=== PATIENT | female | born 1940 | race Asian ===

== ENCOUNTER 2016-12-13 22:40 | Inpatient (IN) | payer OTHER ==
--- NOTE | 2016-12-13 22:50 | PDOC ---
History of Present Illness - General Chief Complaint: Injury Stated Complaint: FALL History Source: Patient Exam Limitations: No Limitations - History of Present Illness Initial Comments: 12/13/16 22:49 76y F hx of paraplegia presenting with hip bruising. The pt state she has no sensation from the chest down, yesterday when she was transferring from wheelchair, she fell down off the wheel chair with her L leg folded under her. She did not feel any pain, there was no head injury, loc. Her family noticed buirsing on her L thigh area so came to the ED for evaluation. The pt also endorsed feleing warm at home but dneis any cough, sob, abd pain, cp, n/v, foul smelling urine. Past History - Past Medical History Allergies/Adverse Reactions: Allergies Allergy/AdvReac Type Severity Reaction Status Date / Time No Known Allergies Allergy Unverified 06/30/12 13:39 Home Medications: Ambulatory Orders Methenamine Hippurate [Hiprex [Nf] -] 1 gm PO BID 12/13/16 Pregabalin [Lyrica] 100 mg PO BID 12/13/16 Review of Systems - Review of Systems Able to Perform ROS?: Yes Comments:: 12/13/16 23:50 Constitutional - no reported Fever, Chills, HEENT: no reported vision changes, sore throat Respiratory: no reported cough, sob, hemoptysis Cardiac: no reported chest pain, palpitations, light headedness, leg swelling Abd/GI: no reported abd pain, nausea, vomiting, blood per rectum, melena, diarrhea : no reported dysuria, frequency, discharge Musculskelatal - +swelling/bruising in LLE no reported back pain, joint swelling skin - no reported bruising, erythema, rash neurological: no reported headache, numbness, focal weakness, tingling, ataxia, hematologic: no reported anemia, easy bruising, easy bleeding *Physical Exam - Physical Exam Comments: 12/13/16 23:51 GENERAL: The patient is awake, alert, and fully oriented, Nontoxic - in no acute distress. HEAD: Normocephalic, atraumatic. EYES: extraocular movements intact, sclera anicteric, conjunctiva clear. ENT: Normal voice, Moist mucous membranes. NECK: Normal range of motion, supple, no focal midline cervical tenderness, well healed scar in lower ervical region BACK: no bruising or signs of trauam on back, no erythema, stepoffs, or tenderness LUNGS: Breath sounds equal, clear to auscultation bilaterally. No wheezes, no rhonchi, no rales. HEART: Regular rate and rhythm, normal S1 and S2 without murmur, rub or gallop. ABDOMEN: Soft, nontender, normoactive bowel sounds. No guarding, no rebound. . No CVA tenderness EXTREMITIES: +buirsing/edema in distal LLE, no tenderness, +shortened externally rotated LE. NEUROLOGICAL: No facial assymetry, Normal speech, no movement of LE, no sensation distal to approx t4 PSYCH: Normal mood, normal affect. SKIN: Warm, Dry, normal turgor, Heart Score/ECG Review - ECG Impressions Comment:: 12/14/16 00:52 Twelve-lead EKG was performed and reviewed by me. There is normal sinus rhythm with a normal rate. Rate of 95 The axis is normal. The intervals are normal. There is normal R wave progression T wave inversions in lead 3 and aVF ED Treatment Course - LABORATORY CBC & Chemistry Diagram: 12/15/16 07:00 12/15/16 07:00 - RADIOLOGY Radiology Studies Ordered: Category Date Time Status FEMUR-LEFT [RAD] Stat Radiology 12/13/16 22:49 Ordered HIP & PELVIS-LEFT [RAD] Stat Radiology 12/13/16 22:49 Ordered KNEE 2 POS-LEFT [RAD] Stat Radiology 12/13/16 22:49 Ordered Medical Decision Making - Medical Decision Making 12/13/16 23:18 76y F paraplegic presents s/p fall yesterday, noted some bruising on her L femur. no associated pain. xray noted for displaced distal femur shaft fracture will check labs will admit and consult orthopedics fracture was reduced with good anatomical repositioning and placed in knee immobilizer to reduce movement of lower extremity 12/14/16 01:39 labs reviewed case was d/w HUBERT Worley agreed with admission stable for med/surg under dr. Machado service Case discussed in detail with admitting physician including history, physical exam and ancillary studies. Admitting physician has assumed care for the patient, will follow all pending diagnostics and will complete the evaluation and treatment. *DC/Admit/Observation/Transfer Diagnosis at time of Disposition: Paraplegia Femur fracture, left Qualifiers: Encounter type: initial encounter Femur location: shaft Fracture type: closed Fracture morphology: oblique Fracture alignment: displaced Qualified Code(s): S72.332A - Displaced oblique fracture of shaft of left femur, initial encounter for closed fracture - Discharge Dispostion Condition at time of disposition: Guarded Admit: Yes - Referrals
[2016-12-14 00:47] LABS: BASOPHIL 0.6 % (0-2.0); EOSINOPHIL 0.2 % (0-4.5); MCH 29.9 pg (25.7-33.7); MCHC 34.2 g/dl (32.0-36.0); MEAN CELL VOLUME 87.5 fl (80-96); MEAN PLT VOLUME 11.3 fl (7.5-11.1); NEUTROPHILS 76.6 % (42.8-82.8); PLATELET COUNT 173 K/MM3 (134-434); RDW 13.5 % (11.6-15.6); WHITE BLOOD COUNT 10.2 K/mm3 (4.0-10.0)
[2016-12-14 01:02] LABS: INR 1.04 (0.82-1.09); PROTHROMBIN TIME (PATIENT) 11.5 SEC (9.98-11.88)
[2016-12-14 01:21] LABS: ALBUMIN 3.7 g/dl (3.4-5.0); ALK PHOS 78 U/L (45-117); ANION GAP 10 (8-16); BILIRUBIN,TOTAL 0.5 mg/dL (0.2-1.0); CALCIUM 8.4 mg/dL (8.5-10.1); CO2 25 mmol/L (21-32); CREATININE 0.6 mg/dL (0.55-1.02); GLUCOSE,RANDOM 128 mg/dL (74-106); SGOT/AST 16 U/L (15-37); SGPT/ALT 27 U/L (12-78); TOT PROT 6.9 g/dl (6.4-8.2)
[2016-12-14 03:50] VITALS: BMI 28.5
[2016-12-14] MEDS ORDERED: LEVOTHYROXINE NA 50 MCG TABLET (FP) PO SCH (07:00)
--- NOTE | 2016-12-14 07:01 | HP ---
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 On December 13 patient was being assisted from her wheelchair she fell onto her left lower extremity. Family noted the left lower extremity was swollen and she was brought to the emergency department for further evaluation. ER course was notable for: (1) xray of left femur, distal displaced fracture (2)chest xray, no infilitrates no effusions noted (3)ekg nsr non specific t wave abnormality Recent Travel: none PAST MEDICAL HISTORY: parapelgia, thoracic spine abscess, hypertension, hyperlipidemia PAST SURGICAL HISTORY: thoracic spine abscess debridement Social History: resides at home with Smoking:none Alcohol:none Drugs: none Family History: noncontributory to this admission Allergies No Known Allergies Allergy (Unverified 06/30/12 13:39) HOME MEDICATIONS: Home Medications Medication Instructions Recorded Methenamine Hippurate [Hiprex [Nf] 1 gm PO BID 12/13/16 -] Pregabalin [Lyrica] 100 mg PO BID 12/13/16 REVIEW OF SYSTEMS CONSTITUTIONAL: Absent: fever, chills, diaphoresis, generalized weakness, malaise, loss of appetite, weight change HEENT: Absent: rhinorrhea, nasal congestion, throat pain, throat swelling, difficulty swallowing, mouth swelling, ear pain, eye pain, visual changes CARDIOVASCULAR: Absent: chest pain, syncope, palpitations, irregular heart rate, lightheadedness , peripheral edema RESPIRATORY: Absent: cough, shortness of breath, dyspnea with exertion, orthopnea, wheezing, stridor, hemoptysis GASTROINTESTINAL: Absent: abdominal pain, abdominal distension, nausea, vomiting, diarrhea, constipation, melena, hematochezia GENITOURINARY: Absent: dysuria, frequency, urgency, hesitancy, hematuria, flank pain, genital pain MUSCULOSKELETAL: Present: left lower extremity swelling Absent: myalgia, arthralgia, joint swelling, back pain, neck pain SKIN: Absent: rash, itching, pallor HEMATOLOGIC/IMMUNOLOGIC: Absent: easy bleeding, easy bruising, lymphadenopathy, frequent infections ENDOCRINE: Absent: unexplained weight gain, unexplained weight loss, heat intolerance, cold intolerance NEUROLOGIC: Absent: headache, focal weakness or paresthesias, dizziness, unsteady gait, seizure, mental status changes, bladder or bowel incontinence PSYCHIATRIC: Absent: anxiety, depression, suicidal or homicidal ideation, hallucinations. PHYSICAL EXAMINATION Vital Signs - 24 hr 12/14/16 12/14/16 12/14/16 03:01 03:12 06:00 Temperature 99.5 F 99.5 F 99.2 F Pulse Rate 92 H 92 H 85 Respiratory 18 18 19 Rate Blood Pressure 130/72 130/72 110/56 O2 Sat by Pulse 98 98 99 Oximetry (%) GENERAL: Awake, alert, and fully oriented, in no acute distress. HEAD: Normal with no signs of trauma. EYES: Pupils equal, round and reactive to light, extraocular movements intact, sclera anicteric, conjunctiva clear. No lid lag. EARS, NOSE, THROAT: Ears normal, nares patent, oropharynx clear without exudates. Moist mucous membranes. NECK: Normal range of motion, supple without lymphadenopathy, JVD, or masses. LUNGS: Breath sounds equal, clear to auscultation bilaterally. No wheezes, and no crackles. No accessory muscle use. HEART: Regular rate and rhythm, normal S1 and S2 without murmur, rub or gallop. ABDOMEN: Soft, nontender, not distended, normoactive bowel sounds, no guarding, no rebound, no masses. No hepatomegaly or splenomegaly. MUSCULOSKELETAL: Normal range of motion at all joints. No bony deformities or tenderness. No CVA tenderness. UPPER EXTREMITIES: 2+ pulses, warm, well-perfused. No cyanosis. No clubbing. No peripheral edema. LOWER EXTREMITIES: 2+ pulses, warm, well-perfused. No calf tenderness. No peripheral edema. LEFT LOWER EXTREMITY: swelling noted to the distal thigh with slight echymosis, knee immbolizer in place, less than 3 second capillary refil, +3 pedal pulse NEUROLOGICAL: Cranial nerves II-XII intact. Normal speech. Normal gait. PSYCHIATRIC: Cooperative. Good eye contact. Appropriate mood and affect. SKIN: Warm, dry, normal turgor, no rashes or lesions noted, normal capillary refill. Laboratory Results - last 24 hr 12/14/16 23:40 Blood Type B POSITIVE ASSESSMENT/PLAN: f/e/n - npo, ivf - replete lytes prn ppx -scd/tiana - incentive spirometer - zantac - hold ac pending or Problem List - Problem (1) Femur fracture, left Assessment/Plan: - xray reviewed, continue knee immobilizer, appreciate the input of ortho - continous q2h neurovascular checks - pt to be kept npo until evaluated by the orthopedist Code(s): S72.92XA - UNSP FRACTURE OF LEFT FEMUR, INIT ENCNTR FOR CLOSED FRACTURE Qualifiers: Encounter type: initial encounter Femur location: shaft Fracture type: closed Fracture morphology: oblique Fracture alignment: displaced Qualified Code(s): S72.332A - Displaced oblique fracture of shaft of left femur, initial encounter for closed fracture (2) Paraplegia Assessment/Plan: - continue prn straight cath - continue lyrica home dose Code(s): G82.20 - PARAPLEGIA, UNSPECIFIED (3) Hypertension Assessment/Plan: - continue norvasc, b/p at goal - strict b/p monitoring Code(s): I10 - ESSENTIAL (PRIMARY) HYPERTENSION (4) Hypothyroidism Assessment/Plan: - continue levothyroxine home dose - tsh wnl Code(s): E03.9 - HYPOTHYROIDISM, UNSPECIFIED Qualifiers: Hypothyroidism type: acquired Qualified Code(s): E03.9 - Hypothyroidism, unspecified Visit type - Emergency Visit Emergency Visit: Yes ED Registration Date: 12/14/16 Care time: The patient presented to the Emergency Department on the above date and was hospitalized for further evaluation of their emergent condition. - New Patient This patient is new to me today: Yes Date on this admission: 12/14/16 - Critical Care Critical Care patient: No
[2016-12-14 07:45] LABS: URINE APPEARANCE Clear; URINE BILIRUBIN Negative (NEGATIVE); URINE BLOOD Negative (NEGATIVE); URINE GLUCOSE (UA) Negative (NEGATIVE); URINE KETONE Negative (NEGATIVE); URINE LEUK ESTERASE Negative (NEGATIVE); URINE NITRITE Negative (NEGATIVE); URINE PROTEIN Negative (NEGATIVE); URINE UROBILINOGEN 0.2 (0.2-1.0)
[2016-12-14 08:02] LABS: URINE COLOR YELLOW
--- NOTE | 2016-12-14 08:42 | EKG ---
Test Reason : Blood Pressure : / mmHG Vent. Rate : 095 BPM Atrial Rate : 095 BPM P-R Int : 158 ms QRS Dur : 082 ms QT Int : 358 ms P-R-T Axes : 052 010 -09 degrees QTc Int : 449 ms NORMAL SINUS RHYTHM T WAVE ABNORMALITY, CONSIDER INFERIOR ISCHEMIA NONSPECIFIC T WAVE ABNORMALITY NO PREVIOUS ECGS AVAILABLE Confirmed by SUSAN REYES MD ([id number]) on 12/14/2016 8:42:35 AM Referred By: MD LORENZO Confirmed By:SUSAN REYES MD
[2016-12-14] MEDS: PREGABALIN 50 MG CAPSULE PO SCH ×2 (09:56→21:12)
[2016-12-14] MEDS: amLODIPine BESYLATE 2.5 MG TABLET (FP) PO SCH (09:56)
[2016-12-14] MEDS: RANITIDINE HCL 150 MG TABLET (FP) PO SCH (09:57)
[2016-12-14] MEDS ORDERED: PATIENT'S OWN MEDICATION (NON-FORMULARY) (Methenamine Hippurate 1 GM) PO SCH (10:00)
[2016-12-14] MEDS ORDERED: amLODIPine BESYLATE 2.5 MG TABLET (FP) PO SCH (10:00)
[2016-12-14] MEDS ORDERED: PREGABALIN 100 MG CAPSULE PO SCH (10:00)
[2016-12-14] MEDS: OXYBUTYNIN CHLORIDE 5 MG TABLET PO SCH ×2 (14:17→21:13)
[2016-12-14] MEDS: HEPARIN NA (PORCINE) 5,000 UNITS/ML 1ML VIAL SQ SCH ×2 (14:17→21:13)
[2016-12-15] MEDS: LEVOTHYROXINE NA 50 MCG TABLET (FP) PO SCH (06:59)
[2016-12-15] MEDS: OXYBUTYNIN CHLORIDE 5 MG TABLET PO SCH ×3 (06:59→21:53)
[2016-12-15] MEDS: HEPARIN NA (PORCINE) 5,000 UNITS/ML 1ML VIAL SQ SCH (07:00)
[2016-12-15 07:51] LABS: BASOPHIL 0.4 % (0-2.0); EOSINOPHIL 0.6 % (0-4.5); MCH 29.1 pg (25.7-33.7); MCHC 35.4 g/dl (32.0-36.0); MEAN CELL VOLUME 82.2 fl (80-96); MEAN PLT VOLUME 9.8 fl (7.5-11.1); PLATELET COUNT 163 K/MM3 (134-434); RDW 12.4 % (11.6-15.6); WHITE BLOOD COUNT 7.6 K/mm3 (4.0-10.8)
[2016-12-15 07:57] LABS: ANION GAP 4 (8-16); CALCIUM 8.1 mg/dl (8.4-10.2); CO2 26 mmol/L (22-28); CREATININE 0.6 mg/dl (0.6-1.3); GLUCOSE,RANDOM 108 mg/dl (74-106)
--- NOTE | 2016-12-15 08:40 | PN ---
Physical Exam: SUBJECTIVE: Patient seen and examined, reports feeling well, awaiting surgery, denies any chest pain or shorrtness of breath. OBJECTIVE:Patient is a 76 y/o female with a past medical history of parapelgia ( since 2000 s/p thoracic spine abscess), hypertension, and hyperlipidemia. patient was admitted from the emergency department for a left distal displaced femur fracture Vital Signs Period Temp Pulse Resp BP Sys/Sterling Pulse Ox Last 24 Hr 98.1 F-99 F 71-84 18-19 98-125/46-71 96-97 GENERAL: The patient is awake, alert, and fully oriented, in no acute distress. HEAD: Normal with no signs of trauma. EYES: PERRL, extraocular movements intact, sclera anicteric, conjunctiva clear. No ptosis. ENT: Ears normal, nares patent, oropharynx clear without exudates, moist mucous membranes. NECK: Trachea midline, full range of motion, supple. LUNGS: Breath sounds equal, clear to auscultation bilaterally, no wheezes, no crackles, no accessory muscle use. HEART: Regular rate and rhythm, S1, S2 without murmur, rub or gallop. ABDOMEN: Soft, nontender, nondistended, normoactive bowel sounds, no guarding, no rebound, no hepatosplenomegaly, no masses. EXTREMITIES: 2+ pulses, warm, well-perfused, no edema. LEFT LOWER EXTREMITY: knee immobilizer, less than 3 second capillary refill, +3 pedal pulse, + swelling noted to the distal thigh NEUROLOGICAL: Cranial nerves II through XII grossly intact. Normal speech, gait not observed. PSYCH: Normal mood, normal affect. SKIN: Warm, dry, normal turgor, no rashes or lesions noted Laboratory Results - last 24 hr 12/14/16 12/15/16 12/15/16 07:24 07:00 07:00 WBC 7.6 RBC 3.51 L Hgb 10.2 L Hct 28.8 L MCV 82.2 MCH 29.1 MCHC 35.4 RDW 12.4 Plt Count 163 MPV 9.8 Neutrophils % 62.0 Lymphocytes % 27.5 Monocytes % 9.5 Eosinophils % 0.6 Basophils % 0.4 Sodium 138 Potassium 3.8 Chloride 108 H Carbon Dioxide 26 Anion Gap 4 L BUN 15 Creatinine 0.6 Random Glucose 108 H Calcium 8.1 L TSH 2.10 Active Medications Generic Name Dose Route Start Last Admin Trade Name Feliceq PRN Reason Stop Dose Admin Amlodipine Besylate 2.5 mg 12/14/16 10:00 12/14/16 09:56 Norvasc - PO 2.5 mg DAILY OLAYINKA Administration Heparin Sodium (Porcine) 5,000 unit 12/14/16 10:00 12/15/16 07:00 Heparin - SQ Not Given BID OLAYINKA Levothyroxine Sodium 50 mcg 12/15/16 07:00 12/15/16 06:59 Synthroid - PO Not Given DAILY@0700 [facility] Non-Formulary Medication 1 gm 12/14/16 10:00 Methenamine Hippurate PO BID [facility] Oxybutynin Chloride 5 mg 12/14/16 14:00 12/15/16 06:59 Ditropan - PO Not Given TID [facility] Pregabalin 100 mg 12/14/16 10:00 12/14/16 21:12 Lyrica - PO 100 mg BID OLAYINKA Administration Ranitidine HCl 150 mg 12/14/16 10:00 12/14/16 09:57 Zantac - PO 150 mg DAILY OLAYINKA Administration Microbiology 12/14/16 02:23 Urine - Urine Clean Catch Urine Culture - Preliminary Lactose Fermenting Neg Bacilli IMAGING ct scan of left lower extremity: comminuted displaced fracture of distal femoral shaft ASSESSMENT/PLAN: 1) left distal femur fracture - pending or today for orif (Adams) - keep npo -->ivf - continue q2h neurovascular checks 2) paraplegia - continue prn straight cath - continue lyrica home dose 3) hypertension - continue norvasc, b/p at goal - strict b/p monitoring 4) hypothyoidism - continue synthroid home dose, tsh wnl 5) urinary tract infection - urine culture preliminary + lactose fermenting neg bacili - start rocephin f/e/n - npo -->ivf - replete lytes prn ppx - hold ac pending or - zantac - scd/tiana dispo: requires inpatient care Problem List - Problems (1) Femur fracture, left Code(s): S72.92XA - UNSP FRACTURE OF LEFT FEMUR, INIT ENCNTR FOR CLOSED FRACTURE Qualifiers: Encounter type: initial encounter Femur location: shaft Fracture type: closed Fracture morphology: oblique Fracture alignment: displaced Qualified Code(s): S72.332A - Displaced oblique fracture of shaft of left femur, initial encounter for closed fracture (2) Paraplegia Code(s): G82.20 - PARAPLEGIA, UNSPECIFIED (3) Hypertension Code(s): I10 - ESSENTIAL (PRIMARY) HYPERTENSION (4) Hypothyroidism Code(s): E03.9 - HYPOTHYROIDISM, UNSPECIFIED Qualifiers: Hypothyroidism type: acquired Qualified Code(s): E03.9 - Hypothyroidism, unspecified Visit type - Emergency Visit Emergency Visit: Yes ED Registration Date: 12/14/16 Care time: The patient presented to the Emergency Department on the above date and was hospitalized for further evaluation of their emergent condition. - New Patient This patient is new to me today: No - Critical Care Critical Care patient: No - Discharge Referral Referred to [facility] No
[2016-12-15] MEDS: D5-1/2NS+20 MEQ KCL - 1,000 ML IV SCH (08:54)
--- NOTE | 2016-12-15 08:55 | HP ---
DATE OF ADMISSION: DATE OF DICTATION: 12/15/2016 CHIEF COMPLAINT: Left knee injury. HISTORY OF PRESENT ILLNESS: This is a 76-year-old woman who had been transferring from her wheelchair when she fell. They noted swelling and some deformity and therefore she was brought to the emergency room. She does have a history of paraplegia secondary to a spinal abscess. PAST MEDICAL HISTORY: Significant for hypertension and hyperlipidemia. PAST SURGICAL HISTORY: Significant for spinal surgery for her abscess. SOCIAL HISTORY: Denies alcohol, tobacco or drugs. FAMILY HISTORY: Noncontributory. ALLERGIES: Denies. MEDICATIONS: Reviewed as in chart. REVIEW OF SYSTEMS: Negative for any constitutional, HEENT, cardiovascular, respiratory, gastrointestinal, or genitourinary symptoms. PHYSICAL EXAMINATION: General: This is a well-appearing female in no acute distress. She is alert and oriented x3. She is seen lying in the hospital bed. Extremities: Examination of the left lower extremity demonstrates some moderate diffuse swelling. There is crepitus and instability about the knee joint. The knee joint itself demonstrates no effusion. DP pulse 2+. She does have no active motor and no sensation in the leg secondary to her prior neurologic injury. Radiographs reviewed, demonstrating a 100% displaced distal femoral metaphyseal fracture. ASSESSMENT: Left displaced distal femur fracture. PLAN: I reviewed today's findings with the patient as well as her daughter over the phone and her who was present during the conversation as well. We discussed that she has a complete fracture of her distal femur. While she is a nonambulator, I believe that the best option for her is operative care. We discussed the option of nonoperative care. This would be with a brace. Given that she has no protective sensation and is independent in transfers, I believe that nonoperative treatment would limit her ability to be mobile and also put her at risk for stress ulcers both from the fracture itself as well as from the brace. Alternatively, we could go ahead with operative fixation. This would involve either a plate or an intramedullary nail. This would allow for early mobilization and for her knee to flex which I believe would significantly help her transferring and allow for protection of the skin. I reviewed the surgical risks in detail including bleeding, infection, neurovascular injury, need for further surgery, postoperative pain, or stiffness of the knee. We reviewed medical risks such as heart attack, stroke, DVT, PE, and . We discussed the risks of nonunion or malunion. We discussed the use of perioperative antibiotic prophylaxis as well as perioperative DVT prophylaxis. I addressed all of the patient's and her family's questions. They verbalized understanding and are electing to proceed. She will be brought to the operating room, tomorrow. In order to help determine whether an intramedullary nail or a plate fixation would be better, a CT scan will be ordered of the knee to determine the extent of the fracture and bone available for fixation. BLAISE COLINDRES M.D. [id number] MTDD
[2016-12-15] MEDS: PREGABALIN 50 MG CAPSULE PO SCH ×2 (09:21→21:53)
[2016-12-15] MEDS: RANITIDINE HCL 150 MG TABLET (FP) PO SCH (09:22)
[2016-12-15] MEDS: CEFTRIAXONE 50 ML IVPB SCH (09:23)
[2016-12-15] MEDS: amLODIPine BESYLATE 2.5 MG TABLET (FP) PO SCH (09:24)
[2016-12-15] MEDS ORDERED: BUPIVACAINE HCL/PF 0.5% (5MG/ML) 10 ML VIAL ONE (14:39)
[2016-12-15] MEDS ORDERED: NITROPRUSSIDE SODIUM 25 MG/1 ML ML IVPB ONE (14:49)
[2016-12-15] MEDS ORDERED: PHENYLEPHRINE HCL 10 MG/1 ML SINGLE DOSE VIAL ONE (15:11)
[2016-12-15] MEDS ORDERED: DEXAMETHASONE SOD PHOSPHATE 4 MG/1 ML VIAL ONE (15:30)
[2016-12-15] MEDS ORDERED: ONDANSETRON 4 MG/2 ML VIAL ONE (15:30)
[2016-12-15] MEDS ORDERED: ceFAZolin SODIUM 1 GM VIAL ONE (15:30)
[2016-12-15] MEDS ORDERED: MIDAZOLAM HCL 2 MG/2 ML SINGLE DOSE VIAL ONE (15:35)
[2016-12-15] MEDS ORDERED: BACITRACIN 15 GM TUBE TOPICAL OINTMENT ONE (17:56)
--- NOTE | 2016-12-15 18:26 | OP ---
Operative Note - Note: Operative Date: 12/15/16 Pre-Operative Diagnosis: left distal femur fracture Operation: open reduction, internal fixation of left distal femur Implants: vadim axsos distal femur plate Post-Operative Diagnosis: Same as Pre-op Surgeon: Suresh Adams Vice President Process: Marion Becerar Anesthesiologist/CARTOONIST SPECIAL EFFECTS: Mono Ordaz Anesthesia: Spinal Estimated Blood Loss (mls): 200 Operative Report Dictated: Yes
[2016-12-15] MEDS ORDERED: PROMETHAZINE HCL 25 MG/1 ML VIAL IVPUSH PRN (18:39)
[2016-12-15] MEDS ORDERED: ONDANSETRON 4 MG/2 ML VIAL IVPUSH PRN (18:39)
[2016-12-15 20:28] LABS: BASOPHIL 0.2 % (0-2.0); MCH 28.9 pg (25.7-33.7); MCHC 34.8 g/dl (32.0-36.0); MEAN CELL VOLUME 83.2 fl (80-96); MEAN PLT VOLUME 9.6 fl (7.5-11.1); NEUTROPHILS 89.8 % (42.8-82.8); PLATELET COUNT 178 K/MM3 (134-434); RDW 12.4 % (11.6-15.6); WHITE BLOOD COUNT 10.4 K/mm3 (4.0-10.8)
[2016-12-15] MEDS: DOCUSATE SODIUM 100 MG CAPSULE (FP) PO SCH (21:52)
[2016-12-15] MEDS: FERROUS SO4 325 MG TABLET (FP) PO SCH (21:53)
[2016-12-15] MEDS: CALCIUM 500MG/VIT-D 200 UNITS COMBO TABLET (FP) PO SCH (21:54)
[2016-12-16] MEDS ORDERED: CEFAZOLIN 1 GM/D5W 50 ML IVPB SCH (02:00)
[2016-12-16] MEDS: OXYBUTYNIN CHLORIDE 5 MG TABLET PO SCH ×3 (06:14→21:15)
[2016-12-16] MEDS: DOCUSATE SODIUM 100 MG CAPSULE (FP) PO SCH ×3 (06:14→21:14)
[2016-12-16] MEDS: LEVOTHYROXINE NA 50 MCG TABLET (FP) PO SCH (06:14)
[2016-12-16 07:54] LABS: ANION GAP 7 (8-16); CALCIUM 8.4 mg/dl (8.4-10.2); CO2 22 mmol/L (22-28); CREATININE 0.5 mg/dl (0.6-1.3); GLUCOSE,RANDOM 139 mg/dl (74-106)
--- NOTE | 2016-12-16 09:45 | PN ---
Physical Exam: SUBJECTIVE: Patient seen and examined. No pain, no complaints. OBJECTIVE: Vital Signs Period Temp Pulse Resp BP Sys/Sterling Pulse Ox Last 24 Hr 98.2 F-99.2 F 71-83 15-22 98-124/44-63 95-98 GENERAL: The patient is awake, alert, and fully oriented, in no acute distress. HEAD: Normal with no signs of trauma. EYES: PERRL, extraocular movements intact, sclera anicteric, conjunctiva clear. No ptosis. ENT: Ears normal, nares patent, oropharynx clear without exudates, moist mucous membranes. NECK: Trachea midline, full range of motion, supple. LUNGS: Breath sounds equal, clear to auscultation bilaterally, no wheezes, no crackles, no accessory muscle use. HEART: Regular rate and rhythm, S1, S2 without murmur, rub or gallop. ABDOMEN: Soft, nontender, nondistended, normoactive bowel sounds, no guarding, no rebound, no hepatosplenomegaly, no masses. EXTREMITIES: 2+ pulses, warm, well-perfused, no edema. Left knee immobilizer in place. Aquacel dressing clean and dry. NEUROLOGICAL: Cranial nerves II through XII grossly intact. Normal speech. PSYCH: Normal mood, normal affect. SKIN: Warm, dry, normal turgor, no rashes or lesions noted Laboratory Results - last 24 hr 12/14/16 12/15/16 12/16/16 23:40 20:00 07:17 WBC 10.4 D RBC 3.46 L Hgb 10.0 L Hct 28.7 L MCV 83.2 MCH 28.9 MCHC 34.8 RDW 12.4 Plt Count 178 MPV 9.6 Neutrophils % 89.8 H D Lymphocytes % 9.1 D Monocytes % 0.9 L D Eosinophils % 0.0 D Basophils % 0.2 Sodium 138 Potassium 4.1 Chloride 109 H Carbon Dioxide 22 Anion Gap 7 L BUN 11 D Creatinine 0.5 L Random Glucose 139 H D Calcium 8.4 Blood Type B POSITIVE Crossmatch See Detail Active Medications Generic Name Dose Route Start Last Admin Trade Name Freq PRN Reason Stop Dose Admin Amlodipine Besylate 2.5 mg 12/14/16 10:00 12/15/16 09:24 Norvasc - PO Not Given DAILY OLAYINKA Calcium Carbonate/Cholecalciferol 1 tab 12/15/16 22:00 12/15/16 21:54 Os-Eric 500+D - PO 1 tab BID OLAYINKA Administration Docusate Sodium 100 mg 12/15/16 22:00 12/16/16 06:14 Colace - PO 100 mg TID OLAYINKA Administration Enoxaparin Sodium 40 mg 12/16/16 10:00 Lovenox - SQ DAILY OLAYINKA Fentanyl 50 mcg 12/15/16 18:39 Sublimaze Injection - IVPUSH 12/18/16 18:40 [id number] PRN PAIN Ferrous Sulfate 325 mg 12/15/16 22:00 12/15/16 21:53 Feosol - PO 325 mg BID OLAYINKA Administration Potassium Chloride/Dextrose/Sod Cl 1,000 mls @ 75 mls/hr 12/15/16 08:45 08:54 D5-1/2ns+20 Meq Kcl - IV 75 mls/hr ASDIR OLAYINKA Administration Ceftriaxone Sodium 50 mls @ 100 mls/hr 12/15/16 10:00 12/15/16 09:23 Rocephin 1gm Ivpb (Pre-Docked) IVPB 100 mls/hr DAILY OLAYINKA Administration Cefazolin Sodium 50 mls @ 100 mls/hr 12/16/16 02:00 Ancef 1 Gm Premixed Ivpb - IVPB 12/17/16 00:59 Q8H-IV OLAYINKA Levothyroxine Sodium 50 mcg 12/15/16 07:00 12/16/16 06:14 Synthroid - PO 50 mcg DAILY@0700 OLAYINKA Administration Non-Formulary Medication 1 gm 12/14/16 10:00 Methenamine Hippurate PO BID [facility] Oxybutynin Chloride 5 mg 12/14/16 14:00 12/16/16 06:14 Ditropan - PO 5 mg TID OLAYINKA Administration Pregabalin 100 mg 12/14/16 10:00 12/15/16 21:53 Lyrica - PO 100 mg BID OLAYINKA Administration Ranitidine HCl 150 mg 12/14/16 10:00 12/15/16 09:22 Zantac - PO 150 mg DAILY OLAYINKA Administration Microbiology 12/14/16 02:23 Urine - Urine Clean Catch Urine Culture - Final Escherichia Coli IMAGING CT LLE 12/14: Comminuted, displaced fracture of distal femoral shaft ASSESSMENT/PLAN: 76 year old female with history 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 1. ORTHO: Left distal femur fracture -POD #1 s/p ORIF (Dr. Adams) -No pain (paraplegia) 2. NEURO: Paraplegia -Self-catheterizes -Continue Lyrica at home dose 3. CARDS: HTN -Continue Norvasc 4. ENDO: Hypothyroidism -Continue home Synthroid 5. ID: UTI -Culture: ureña-sensitivie E coli -Continue Ceftriaxone post-op, switch to Keflex tomorrow 6. F/E/N -Regular diet 7. Ppx -Lovenox -No indication for GI ppx -PT DISPO: Requires inpatient care. Visit type - Emergency Visit Emergency Visit: Yes ED Registration Date: 12/14/16 Care time: The patient presented to the Emergency Department on the above date and was hospitalized for further evaluation of their emergent condition. - New Patient This patient is new to me today: Yes Date on this admission: 12/22/16 - Critical Care Critical Care patient: No
[2016-12-16] MEDS: amLODIPine BESYLATE 2.5 MG TABLET (FP) PO SCH (10:07)
[2016-12-16] MEDS: CALCIUM 500MG/VIT-D 200 UNITS COMBO TABLET (FP) PO SCH ×2 (10:08→21:15)
[2016-12-16] MEDS: FERROUS SO4 325 MG TABLET (FP) PO SCH ×2 (10:08→21:15)
[2016-12-16] MEDS: PREGABALIN 50 MG CAPSULE PO SCH ×2 (10:08→21:15)
[2016-12-16] MEDS: ENOXAPARIN NA (PORCINE) 40 MG/0.4 ML DISP.SYRIN SQ SCH (10:09)
[2016-12-16] MEDS: CEFTRIAXONE 50 ML IVPB SCH (10:09)
--- NOTE | 2016-12-16 10:09 | OP ---
DATE OF OPERATION: 12/15/2016 PREOPERATIVE DIAGNOSIS: Left distal femur fracture. POSTOPERATIVE DIAGNOSIS: Left distal femur fracture. PROCEDURE: Left distal femur open reduction and internal fixation. SURGEON: Suresh Adams MD CORPORATE STRATEGY INTERN: FRANCK Plasencia, whose skillful assistance was necessary for the safe and timely performance of this procedure. Ms. Becerra was able to help provide limb positioning, fracture reduction, retraction, as well as the fixation of the fracture while the rn surgical pcu was manipulating complex orthopedic instruments. ANESTHESIA TYPE: Spinal. POSTOPERATIVE CONDITION: Stable. COMPLICATIONS: None. IMPLANTS: [place] AxSOS distal femoral plate, titanium. INDICATIONS: This is a pleasant, 76-year-old woman who had fallen during a transfer. She was found to have a displaced, unstable distal femoral fracture. Treatment options including nonoperative versus operative management were discussed. In order to aid in transfers, avoid any skin complications, open reduction and internal fixation was recommended. Operative risks were reviewed in detail including bleeding, infection, neurovascular injury, needle for further surgery, postoperative pain and stiffness, nonunion, malunion, hardware failure, or cut-out. We discussed medical risks such as heart attack, stroke, DVT, PE, and . I addressed all the patient's questions. She voiced understanding and elected to proceed. Conversations were also carried out with and daughter present. DESCRIPTION OF PROCEDURE: The patient was brought to the operating room where spinal anesthesia was administered. The left lower extremity was then prepped and draped in the usual sterile fashion. Preoperative dose of antibiotics given and the usual timeout procedure was performed. At this point, an incision was planned out distally over the lateral aspect of the femur. This was carried down through skin to subcutaneous tissue. Electrocautery was used to maintain hemostasis. The fascia dheeraj was then identified and then split in line with its fibers. The vastus lateralis was elevated anteriorly off the femur. This exposed the fracture site. Hematoma was evacuated. The fracture was now reduced utilizing fracture reduction forceps. Two 2-mm K-wires were used to hold temporary reduction. A plate was now chosen to affix the fracture. It was slid subperiosteally up the side of the femur in percutaneous technique. The plate was now affixed to the bone utilizing another 2.0 K-wire. Distally, in one of the nonlocking holes, a 3.5mm screw was then drilled and then inserted to bring the plate down to the femoral cortex. More proximally, the locking jig was employed and the incision was made and the guide was inserted percutaneously down to the plate. The whirly-bird device was now drilled and inserted, and the plate was brought down to the bone more proximally. At this point, both fracture reduction and hardware placement were examined both fluoroscopically and visually. Both were satisfactory. The remainder of the proximal aspect of the plate was filled every other hole locking screws utilizing percutaneous technique, with the unicortical screw put most proximally to avoid stress concentration in this portion of the plate. The distal screws were then filled, again utilizing locking screws. After insertion of all the screws, the entire construct was examined both visually and fluoroscopically, and both were satisfactory. The wounds in the tissues exposed were now copiously irrigated. The fascia was approximated using No. 1 Vicryl. The deep subcutaneous tissue was approximated using 0 Vicryl. Subcutaneous tissue was approximated using 2-0 Vicryl. The skin was closed using running 3-0 nylon. Sterile dressings were placed. The patient was transferred to recovery room in stable condition. Abraham [id number] MTDD
[2016-12-17] MEDS: LEVOTHYROXINE NA 50 MCG TABLET (FP) PO SCH (06:30)
[2016-12-17] MEDS: DOCUSATE SODIUM 100 MG CAPSULE (FP) PO SCH ×4 (06:30→21:36)
[2016-12-17] MEDS: D5-1/2NS+20 MEQ KCL - 1,000 ML IV SCH ×2 (06:30→09:48)
[2016-12-17] MEDS: OXYBUTYNIN CHLORIDE 5 MG TABLET PO SCH ×3 (06:30→21:31)
[2016-12-17 08:04] LABS: BASOPHIL 0.6 % (0-2.0); EOSINOPHIL 0.8 % (0-4.5); MCH 29.2 pg (25.7-33.7); MCHC 35.2 g/dl (32.0-36.0); MEAN CELL VOLUME 82.9 fl (80-96); MEAN PLT VOLUME 9.5 fl (7.5-11.1); NEUTROPHILS 66.6 % (42.8-82.8); PLATELET COUNT 195 K/MM3 (134-434); RDW 12.4 % (11.6-15.6); WHITE BLOOD COUNT 9.5 K/mm3 (4.0-10.8)
[2016-12-17 08:15] LABS: ANION GAP 6 (8-16); CALCIUM 8.1 mg/dl (8.4-10.2); CO2 26 mmol/L (22-28); CREATININE 0.6 mg/dl (0.6-1.3); GLUCOSE,RANDOM 97 mg/dl (74-106)
--- NOTE | 2016-12-17 09:31 | PN ---
Physical Exam: SUBJECTIVE: Patient seen and examined. Offers no complaints. OBJECTIVE: Vital Signs Period Temp Pulse Resp BP Sys/Sterling Pulse Ox Last 24 Hr 98.0 F-99.5 F 78-80 16-21 105-130/50-58 93-96 GENERAL: The patient is awake, alert, and fully oriented, in no acute distress. HEAD: Normal with no signs of trauma. EYES: PERRL, extraocular movements intact, sclera anicteric, conjunctiva clear. No ptosis. ENT: Ears normal, nares patent, oropharynx clear without exudates, moist mucous membranes. NECK: Trachea midline, full range of motion, supple. LUNGS: Breath sounds equal, clear to auscultation bilaterally, no wheezes, no crackles, no accessory muscle use. HEART: Regular rate and rhythm, S1, S2 without murmur, rub or gallop. ABDOMEN: Soft, nontender, nondistended, normoactive bowel sounds, no guarding, no rebound, no hepatosplenomegaly, no masses. EXTREMITIES: 2+ pulses, warm, well-perfused, no edema. NEUROLOGICAL: Cranial nerves II through XII grossly intact. Normal speech, gait not observed. PSYCH: Normal mood, normal affect. SKIN: Warm, dry, normal turgor, no rashes or lesions noted Laboratory Results - last 24 hr 12/17/16 06:00 WBC 9.5 RBC 3.00 L Hgb 8.8 L D Hct 24.9 L MCV 82.9 MCH 29.2 MCHC 35.2 RDW 12.4 Plt Count 195 MPV 9.5 Neutrophils % 66.6 D Lymphocytes % 22.7 D Monocytes % 9.3 D Eosinophils % 0.8 D Basophils % 0.6 Active Medications Generic Name Dose Route Start Last Admin Trade Name Freq PRN Reason Stop Dose Admin Amlodipine Besylate 2.5 mg 12/14/16 10:00 12/16/16 10:07 Norvasc - PO 2.5 mg DAILY OLAYINKA Administration Calcium Carbonate/Cholecalciferol 1 tab 12/15/16 22:00 12/16/16 21:15 Os-Eric 500+D - PO 1 tab BID OLAYINKA Administration Docusate Sodium 100 mg 12/15/16 22:00 12/17/16 06:30 Colace - PO 100 mg TID OLAYINKA Administration Enoxaparin Sodium 40 mg 12/16/16 10:00 12/16/16 10:09 Lovenox - SQ 40 mg DAILY OLAYINKA Administration Fentanyl 50 mcg 12/15/16 18:39 Sublimaze Injection - IVPUSH 12/18/16 18:40 [id number] PRN PAIN Ferrous Sulfate 325 mg 12/15/16 22:00 12/16/16 21:15 Feosol - PO 325 mg BID OLAYINKA Administration Potassium Chloride/Dextrose/Sod Cl 1,000 mls @ 75 mls/hr 12/15/16 08:45 06:30 D5-1/2ns+20 Meq Kcl - IV Not Given ASDIR OLAYINKA Ceftriaxone Sodium 50 mls @ 100 mls/hr 12/15/16 10:00 12/16/16 10:09 Rocephin 1gm Ivpb (Pre-Docked) IVPB 100 mls/hr DAILY OLAYINKA Administration Cefazolin Sodium 50 mls @ 100 mls/hr 12/16/16 02:00 Ancef 1 Gm Premixed Ivpb - IVPB 12/17/16 00:59 Q8H-IV OLAYINKA Levothyroxine Sodium 50 mcg 12/15/16 07:00 12/17/16 06:30 Synthroid - PO 50 mcg DAILY@0700 OLAYINKA Administration Non-Formulary Medication 1 gm 12/14/16 10:00 Methenamine Hippurate PO BID OLAYINKA Oxybutynin Chloride 5 mg 12/14/16 14:00 12/17/16 06:30 Ditropan - PO 5 mg TID OLAYINKA Administration Pregabalin 100 mg 12/14/16 10:00 12/16/16 21:15 Lyrica - PO 100 mg BID OLAYINKA Administration Microbiology 12/14/16 02:23 Urine - Urine Clean Catch Urine Culture - Final Escherichia Coli IMAGING CT LLE 12/14: Comminuted, displaced fracture of distal femoral shaft ASSESSMENT/PLAN: 76 year old female with history 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 1. ORTHO: Left distal femur fracture -POD #1 s/p ORIF (Dr. Adams) -No pain (paraplegia) -Mild post-operative anemia (H/H 8.8/24.9 from 10.2/28.8 pre-operatively); monitor 2. NEURO: Paraplegia -Self-catheterizes -Continue Lyrica at home dose 3. CARDS: HTN -Continue Norvasc 4. ENDO: Hypothyroidism -Continue home Synthroid 5. ID: UTI -Culture: ureña-sensitivie E coli -Continue Ceftriaxone post-op, switch to Keflex tomorrow 6. F/E/N -Regular diet 7. Ppx -Lovenox -No indication for GI ppx -PT DISPO: Requires inpatient care. Visit type - Emergency Visit Emergency Visit: Yes ED Registration Date: 12/14/16 Care time: The patient presented to the Emergency Department on the above date and was hospitalized for further evaluation of their emergent condition. - New Patient This patient is new to me today: No - Critical Care Critical Care patient: No
[2016-12-17] MEDS: FERROUS SO4 325 MG TABLET (FP) PO SCH ×2 (09:48→21:31)
[2016-12-17] MEDS: PREGABALIN 50 MG CAPSULE PO SCH ×2 (09:48→21:31)
[2016-12-17] MEDS: ENOXAPARIN NA (PORCINE) 40 MG/0.4 ML DISP.SYRIN SQ SCH (09:48)
[2016-12-17] MEDS: CALCIUM 500MG/VIT-D 200 UNITS COMBO TABLET (FP) PO SCH ×2 (09:49→21:32)
[2016-12-17] MEDS: CEFTRIAXONE 50 ML IVPB SCH (09:49)
[2016-12-17] MEDS: amLODIPine BESYLATE 2.5 MG TABLET (FP) PO SCH (09:49)
--- NOTE | 2016-12-17 11:12 | PN ---
Progress Note (short form) - Note Progress Note: Pt comf. AF VSS LLE dressings cdi calves soft nt 2+ dp pulse hct 24.9 a/p s/p ORIF L distal femur -will f/u HCT tomorrow, ok to d/c if stable -advised pt important to have BM, obstipation can be a very serious problem, has a usual routine for self-disimpaction -colace for stool softener -oob -pt does have hx of bleeding hemorrhoids, may consider aspirin vs NOAC on d/c, will use aspirin if bleeding issues
[2016-12-17] MEDS: POLYETHYLENE GLYCOL 3350 119 GM BTL PO SCH (12:00)
[2016-12-17] MEDS ORDERED: diphenhydrAMINE HCL 25 MG CAPSULE (FP) PO SCH (22:00)
[2016-12-17] MEDS ORDERED: ACETAMINOPHEN 325 MG TABLET (FP) PO ONE (23:30)
[2016-12-18] MEDS: OXYBUTYNIN CHLORIDE 5 MG TABLET PO SCH ×2 (06:09→13:36)
[2016-12-18] MEDS: DOCUSATE SODIUM 100 MG CAPSULE (FP) PO SCH ×2 (06:09→13:37)
[2016-12-18] MEDS: LEVOTHYROXINE NA 50 MCG TABLET (FP) PO SCH (06:09)
[2016-12-18 06:32] VITALS: TEMP 98.6
[2016-12-18 07:52] LABS: BASOPHIL 0.7 % (0-2.0); EOSINOPHIL 1.1 % (0-4.5); MCH 29.5 pg (25.7-33.7); MCHC 35.3 g/dl (32.0-36.0); MEAN CELL VOLUME 83.6 fl (80-96); MEAN PLT VOLUME 8.4 fl (7.5-11.1); NEUTROPHILS 65.6 % (42.8-82.8); PLATELET COUNT 213 K/MM3 (134-434); RDW 12.7 % (11.6-15.6); WHITE BLOOD COUNT 7.2 K/mm3 (4.0-10.8)
[2016-12-18 07:57] LABS: ANION GAP 6 (8-16); CALCIUM 8.2 mg/dl (8.4-10.2); CO2 25 mmol/L (22-28); CREATININE 0.6 mg/dl (0.6-1.3); GLUCOSE,RANDOM 109 mg/dl (74-106)
--- NOTE | 2016-12-18 09:39 | DS ---
Physical Exam: SUBJECTIVE: Patient seen and examined, reports feeling well, denies any chest pain or shorteness of breath OBJECTIVE:Patient is a 76 y/o female with a past medical history of parapelgia ( since 2000 s/p thoracic spine abscess), hypertension, and hyperlipidemia. On Sunday, December 13 patient was being assisted from her wheelchair she fell onto her left lower extremity. Family noted the left lower extremity was swollen and she was brought to the emergency department for further evaluation. ER course was notable for: (1) xray of left femur, distal displaced fracture (2)chest xray, no infilitrates no effusions noted (3)ekg nsr non specific t wave abnormality Vital Signs Period Temp Pulse Resp BP Sys/Sterling Pulse Ox Last 24 Hr 98 F-100.1 F 72-83 16-18 101-113/47-51 95-99 PHYSICAL EXAM GENERAL: The patient is awake, alert, and fully oriented, in no acute distress. HEAD: Normal with no signs of trauma. EYES: PERRL, extraocular movements intact, sclera anicteric, conjunctiva clear. ENT: Ears normal, nares patent, oropharynx clear without exudates, moist mucous membranes. NECK: Trachea midline, full range of motion, supple. LUNGS: Breath sounds equal, clear to auscultation bilaterally, no wheezes, no crackles, no accessory muscle use. HEART: Regular rate and rhythm, S1, S2 without murmur, rub or gallop. ABDOMEN: Soft, nontender, nondistended, normoactive bowel sounds, no guarding, no rebound, no hepatosplenomegaly, no masses. EXTREMITIES: 2+ pulses, warm, well-perfused, no edema. LEFT LOWER EXTREMITY: aguacel dressing in placed, less than 3 second capillary refill, + 3 pedal pulse, dressing CDI NEUROLOGICAL: Cranial nerves II through XII grossly intact. Normal speech, gait not observed. PSYCH: Normal mood, normal affect. SKIN: Warm, dry, normal turgor, no rashes or lesions noted. LABS Laboratory Results - last 24 hr 12/17/16 12/18/16 12/18/16 06:00 07:00 07:00 WBC 7.2 RBC 2.92 L Hgb 8.6 L Hct 24.4 L MCV 83.6 MCH 29.5 MCHC 35.3 RDW 12.7 Plt Count 213 MPV 8.4 D Neutrophils % 65.6 Lymphocytes % 22.5 Monocytes % 10.1 Eosinophils % 1.1 Basophils % 0.7 Sodium 139 139 Potassium 4.0 4.0 Chloride 107 108 H Carbon Dioxide 26 25 Anion Gap 6 L 6 L BUN 12 11 Creatinine 0.6 0.6 Random Glucose 97 D 109 H Calcium 8.1 L 8.2 L Microbiology 12/14/16 02:23 Urine - Urine Clean Catch Urine Culture - Final Escherichia Coli IMAGING CT LLE 12/14: Comminuted, displaced fracture of distal femoral shaft HOSPITAL COURSE: * Left distal femur fracture, POD #3 s/p ORIF (Dr. Adams), No pain (paraplegia) , Mild post-operative anemia (H/H 8.6/24.4 from 10.2/28.8 pre-operatively); patient is asymptomatic * pmh of Paraplegia, Self-catheterizes, continue Lyrica at home dose * pmh of HTN, b/p well controlled on Norvasc * pmh of Hypothyroidism, continue home Synthroid * pmh of UTI, urine culture ureña-sensitivie E coli, treated with rocephin during admission and transitioned to Keflex tomorrow Date of Admission:12/14/16 Date of Discharge: 12/18/16 Minutes to complete discharge: 45 Discharge Summary Reason For Visit: LEFT FEMUR FRACTURE Current Active Problems Femur fracture, left (Acute) Hypertension (Acute) Hypothyroidism (Acute) Paraplegia (Acute) Condition: Guarded - Instructions Diet, Activity, Other Instructions: resume low sodium high fiber diet continue all medications as prescribed Post-op Instructions Call the office for a follow-up appointment in 1 week - [phone] Aspirin 325mg daily for 6 weeks. Maintain Aquacel (waterproof) dressing to operative wound (will be removed by surgeon at first office visit) Shower with Aquacel dressing in place-if Aquacel integrity compromised, remove and apply dry sterile dressing and notify Orthopedist. DO NOT SHOWER unless Orthopedists approves without Aquacel dressing CONTACT THE OFFICE FOR ANY CHANGE IN YOUR CONDITION (for example-fever greater than 102 degrees,excessive bleeding from operative site, purulent drainage, severe swelling or pain) GO TO THE EMERGENCY ROOM IF THERE IS A MEDICAL EMERGENCY * If you have any questions, please do not hesitate to call the office Referrals: Suresh Adams MD [Staff Physician] - Jason Yin MD [Primary Care Provider] - Disposition: VNS/HOME HEALTH CARE - Home Medications Comprehensive Discharge Medication List: Ambulatory Orders Methenamine Hippurate [Hiprex [Nf] -] 1 gm PO BID 12/13/16 Pregabalin [Lyrica] 100 mg PO BID 12/13/16 Problem List - Problems (1) Femur fracture, left Code(s): S72.92XA - UNSP FRACTURE OF LEFT FEMUR, INIT ENCNTR FOR CLOSED FRACTURE Qualifiers: Encounter type: initial encounter Femur location: shaft Fracture type: closed Fracture morphology: oblique Fracture alignment: displaced Qualified Code(s): S72.332A - Displaced oblique fracture of shaft of left femur, initial encounter for closed fracture (2) Paraplegia Code(s): G82.20 - PARAPLEGIA, UNSPECIFIED (3) Hypertension Code(s): I10 - ESSENTIAL (PRIMARY) HYPERTENSION (4) Hypothyroidism Code(s): E03.9 - HYPOTHYROIDISM, UNSPECIFIED Qualifiers: Hypothyroidism type: acquired Qualified Code(s): E03.9 - Hypothyroidism, unspecified This patient is new to me today: No Emergency Visit: Yes ED Registration Date: 12/14/16 Care time: The patient presented to the Emergency Department on the above date and was hospitalized for further evaluation of their emergent condition. Critical Care patient: No - Discharge Referral Referred to [facility] Med [facility] Yes Physician Referral: Jason Yin MD (Int Med)
[2016-12-18] MEDS: FERROUS SO4 325 MG TABLET (FP) PO SCH (09:52)
[2016-12-18] MEDS: PREGABALIN 50 MG CAPSULE PO SCH (09:52)
[2016-12-18] MEDS: amLODIPine BESYLATE 2.5 MG TABLET (FP) PO SCH (09:52)
[2016-12-18] MEDS: CALCIUM 500MG/VIT-D 200 UNITS COMBO TABLET (FP) PO SCH (09:52)
[2016-12-18] MEDS: ENOXAPARIN NA (PORCINE) 40 MG/0.4 ML DISP.SYRIN SQ SCH (09:53)
[2016-12-18] MEDS: POLYETHYLENE GLYCOL 3350 119 GM BTL PO SCH (09:53)
[2016-12-18] MEDS ORDERED: CEPHALEXIN MONOHYDRATE 500 MG CAPSULE (UD) PO SCH (10:00)
[2016-12-18 12:07] VITALS: BP 108/50; PULSE 74
== END 2016-12-18 14:19 | disposition home health service (06) | DRG 481 ==
LOC: FER 22:40 → FM/S 12-14 01:45
PROVIDERS: ADMIT Internal Medicine; ATTEND Nurse Practitioner Family
PROC: 0QS904Z Reposition Left Femoral Shaft with Internal Fixation Device, Open Approach (ICD-10-PCS; principal; 2016-12-15 15:17)
DX: S72.332A Displaced oblique fracture of shaft of left femur, initial encounter for closed fracture (principal); N39.0 Urinary tract infection, site not specified; G82.20 Paraplegia, unspecified; B96.29 Other Escherichia coli [E. coli] as the cause of diseases classified elsewhere; W05.0XXA Fall from non-moving wheelchair, initial encounter; Y93.89 Activity, other specified; Y92.038 Other place in apartment as the place of occurrence of the external cause; Y99.8 Other external cause status; I10 Essential (primary) hypertension; E78.5 Hyperlipidemia, unspecified; E03.9 Hypothyroidism, unspecified
CPT/HCPCS: 36415; 71020-TC; 73552-TC-LT; 73700-TC-RT; 76001-TC; 80048; 80053; 81003; 83735; 84443; 85025; 85610; 86850; 86900; 86901; 87086; 87186; 93005; 94760; 97116-GP; 97161-GP; 99283-25; J1644

== ENCOUNTER 2019-12-30 17:13 | Inpatient (IN) | payer OTHER ==
[2019-12-30] MEDS ORDERED: SODIUM CHLORIDE IV ONE (17:51)
[2019-12-30 18:23] LABS: BASO % 0.3 % (0-2.0); EOS % 0.1 % (0-4.5); HEMATOCRIT 32.7 % (32.4-45.2); HEMOGLOBIN 10.8 GM/dl (10.7-15.3); LYMPH % 7.9 % (8-40); MCH 28.8 pg (25.7-33.7); MEAN CELL VOLUME 87.1 fl (80-96); MEAN PLT VOLUME 8.9 fl (7.5-11.1); NEUT % 85.7 % (42.8-82.8); PLATELET COUNT 329 K/MM3 (134-434); RBC 3.75 M/mm3 (3.60-5.2); RDW 11.9 % (11.6-15.6); WHITE BLOOD COUNT 14.9 K/mm3 (4.0-10.8)
[2019-12-30] MEDS ORDERED: PIPERACILLIN/TAZOB 4.5 GM 4.5 GM in DEXTROSE 5%-WATER 100 ML IVPB ONE (18:40)
--- NOTE | 2019-12-30 18:42 | PDOC ---
Documentation entered by Niesha Carter SCRIBE, acting as scribe for Dwaine Chong MD. Dwaine Chong MD: This documentation has been prepared by the scribeRaul Ana, SCRIBE, under my direction and personally reviewed by me in its entirety. I confirm that the documentation accurately reflects all work, treatment, procedures, and medical decision making performed by me. History of Present Illness - General History Source: Patient Exam Limitations: No Limitations - History of Present Illness Initial Comments: 12/30/19 17:24 Patient is a 79 year old female with a significant past medical history of hypertension, hyperlipidemia, paraplegia (T3 level, secondary to epidural abscess), and frequent UTIs (patient self catheterizes), who presents to the ED with altered mental status, fever, and a concern for sepsis. Patient was seen here in the ED a few days ago for similar symptoms. Patient stated her fever has not gone down since she left the ED and that she was "feeling bad". Per the patient's daughter, patient has been having trouble with self catheterizing, has been "very confused" lately, and that her fever won't go down. Patient's daughter also mentioned that patient accidentally took a few extra pills than the amount she was prescribed - was told by PCP to then stop taking the medication. Patient denies: pain, nausea, vomiting, cough, chest pain, back pain, diarrhea or any other related symptoms. Allergies: NKDA <Dwaine Chong - Last Filed: 12/30/19 19:09> <Kush Garibay - Last Filed: 12/30/19 19:52> - General Chief Complaint: Urinary Problem Stated Complaint: FEVER,UTI Past History - Medical History COPD: No HTN: Yes - Surgical History Orthopedic Surgery: Yes (back surgery 2000) - Psycho-Social/Smoking History Smoking History: Never smoked Have you smoked in the past 12 months: No <Dwaine Chong - Last Filed: 12/30/19 19:09> <Kush Garibay - Last Filed: 12/30/19 19:52> - Medical History Allergies/Adverse Reactions: Allergies Allergy/AdvReac Type Severity Reaction Status Date / Time No Known Allergies Allergy Unverified 06/30/12 13:39 Home Medications: Ambulatory Orders Pregabalin [Lyrica] 100 mg PO BID 12/13/16 Aspirin [ASA -] 325 mg PO DAILY #60 tablet 12/18/16 Calcium 500Mg/Vit-D 200 Units [Os-Eric 500+D -] 1 tab PO BID tab 12/18/16 Cephalexin Monohydrate [Keflex -] 500 mg PO Q8H #21 capsule 12/28/19 Review of Systems - Review of Systems Able to Perform ROS?: Yes Comments:: 12/30/19 17:26 Constitutional - +Fever. + Weakness. HEENT: denies vision changes, sore throat Respiratory: Denies cough, sob, hemoptysis Cardiac: denies chest pain, palpitations, light headedness, leg swelling Abd/GI: denies abd pain, nausea, vomiting, blood per rectum, melena, diarrhea : denies dysuria, frequency, discharge Musculskelatal - denies back pain, joint swelling skin - denies bruising, erythema, rash neurological: denies headache, numbness, focal weakness, tingling, ataxia, weakness hematologic: denies anemia, easy bruising, easy bleeding <Castillo,Dwaine - Last Filed: 12/30/19 19:09> *Physical Exam - Physical Exam 12/30/19 17:25 GENERAL: The patient is awake, alert, and fully oriented, Nontoxic - in no acute distress. HEAD: Normocephalic, atraumatic. EYES: extraocular movements intact, sclera anicteric, conjunctiva clear. ENT: Normal voice, Moist mucous membranes. NECK: Normal range of motion, supple without lymphadenopathy, JVD, or masses. LUNGS: Breath sounds equal, clear to auscultation bilaterally. No wheezes, no crackles, no rales. HEART: Regular rate and rhythm, normal S1 and S2 without murmur, rub or gallop. ABDOMEN: Soft, nontender, No guarding, no rebound. No masses.No cva tenderness EXTREMITIES: , no edema. No clubbing or cyanosis. No cords, erythema, or tenderness. NEUROLOGICAL: insensate just proximal to umbilicus, strength in upper extermities 5/5 and symmetric, no movement in le PSYCH: Normal mood, normal affect. SKIN: hot to touch. Dry, normal turgor, no rashes or lesions noted, no sacral ulcerse noted <Castillo,Dwaine - Last Filed: 12/30/19 19:09> - Vital Signs Last Vital Signs Temp Pulse Resp BP Pulse Ox 102.3 F H 71 16 121/55 L 96 12/30/19 17:52 12/30/19 18:49 12/30/19 18:49 12/30/19 18:49 12/30/19 18:49 <Kush Garibay - Last Filed: 12/30/19 19:52> Heart Score/ECG Review - ECG Impressions Comment:: 12/30/19 18:41 Twelve-lead EKG was performed and reviewed by me. There is normal sinus rhythm with a normal rate. rate of 67 The axis is normal. The intervals are normal. There is normal R wave progression There are no ST or T wave abnormalities. Impression: Normal twelve-lead EKG <Dwaine Chong - Last Filed: 12/30/19 19:09> ED Treatment Course - LABORATORY CBC & Chemistry Diagram: 12/30/19 18:00 12/30/19 18:00 <Dwaine Chong - Last Filed: 12/30/19 19:09> - LABORATORY CBC & Chemistry Diagram: 12/30/19 18:00 12/30/19 18:00 - ADDITIONAL ORDERS Additional order review: Laboratory Results 12/30/19 12/30/19 12/30/19 18:00 18:00 18:00 PT with INR INR PTT (Actin FS) Sodium 131 L Potassium 3.8 Chloride 99 Carbon Dioxide 19 L Anion Gap 13 BUN 13.0 Creatinine 0.6 Est GFR (CKD-EPI)AfAm 101.18 Est GFR (CKD-EPI)NonAf 87.30 Random Glucose 132 H Calcium 7.9 L Total Bilirubin 0.6 AST 45 H ALT 40 Alkaline Phosphatase 88 D Creatine Kinase 93 Troponin I < 0.03 Total Protein 6.5 Albumin 3.0 L Urine Color Yellow Urine Appearance Clear Urine pH 6.5 Urine Protein Negative Urine Glucose (UA) Negative Urine Ketones Negative Urine Blood Negative Urine Nitrite Negative Urine Bilirubin Negative Urine Urobilinogen 0.2 Ur Leukocyte Esterase Negative 12/30/19 18:00 PT with INR 14.9 H INR 1.34 H PTT (Actin FS) 24.8 L Sodium Potassium Chloride Carbon Dioxide Anion Gap BUN Creatinine Est GFR (CKD-EPI)AfAm Est GFR (CKD-EPI)NonAf Random Glucose Calcium Total Bilirubin AST ALT Alkaline Phosphatase Creatine Kinase Troponin I Total Protein Albumin Urine Color Urine Appearance Urine pH Urine Protein Urine Glucose (UA) Urine Ketones Urine Blood Urine Nitrite Urine Bilirubin Urine Urobilinogen Ur Leukocyte Esterase 12/30/19 18:00 RBC 3.75 MCV 87.1 MCHC 33.0 RDW 11.9 MPV 8.9 Neutrophils % 85.7 H Lymphocytes % 7.9 L Monocytes % 6.0 Eosinophils % 0.1 Basophils % 0.3 - Medications Given in the ED: ED Medications Discontinued Medications Generic Name Dose Route Start Last Admin Trade Name Fly PRN Reason Stop Dose Admin Sodium Chloride 2,244 mls @ 1,122 mls/hr 12/30/19 17:51 12/30/19 18:24 Normal Saline - 30 ml/kg infuse over 2 hr (2244 ml) 12/30/19 19:50 1,122 mls/hr IV Administration ONCE ONE Piperacillin Sod/Tazobactam 100 mls @ 200 mls/hr 12/30/19 18:40 12/30/19 18:48 Sod 4.5 gm/ Dextrose IVPB 12/30/19 19:09 200 mls/hr ONCE ONE Administration Protocol Ibuprofen 600 mg 12/30/19 18:47 12/30/19 18:48 Motrin - PO 12/30/19 18:48 600 mg ONCE ONE Administration <Kush Garibay - Last Filed: 12/30/19 19:52> Medical Decision Making - Medical Decision Making 12/30/19 18:02 79-year-old paraplegic, htn, Presenting with fever, recent diagnosis of UTI Presenting with persistent fever. Likely Failure of outpatient treatment ofUTI, sepsis order set obtained <Dwaine Chong - Last Filed: 12/30/19 19:09> Discharge - Discharge Information Problems reviewed: Yes <Dwaine Chong - Last Filed: 12/30/19 19:09> - Discharge Information Problems reviewed: Yes - Admission Yes <Kush Garibay - Last Filed: 12/30/19 19:52> - Discharge Information Clinical Impression/Diagnosis: Febrile illness Condition: Good - Follow up/Referral Referrals: Avila Marks MD [Primary Care Provider] -
[2019-12-30 18:43] LABS: ACTIVATED PTT 24.8 SECONDS (25.2-36.5)
[2019-12-30] MEDS ORDERED: PIPERACILLIN/TAZOBACTAM 4.5 GM VIAL IVPB ONE (18:44)
[2019-12-30 18:45] LABS: BILIRUBIN,TOTAL 0.6 mg/dl (0.2-1); CALCIUM 7.9 mg/dl (8.5-10); CREATININE 0.6 mg/dl (0.55-1.3); POTASSIUM 3.8 mmol/L (3.5-5.1); TOT PROT 6.5 g/dl (6.4-8.2)
[2019-12-30] MEDS ORDERED: ACETAMINOPHEN 1000 MG/100 ML VIAL (NON FORMULARY) IVPB ONE (18:46)
[2019-12-30 18:47] LABS: INR 1.34 (0.82-1.09); PROTHROMBIN TIME (PATIENT) 14.9 SEC (10.2-13.0)
[2019-12-30] MEDS ORDERED: IBUPROFEN 400 MG TABLET (FP) PO ONE (18:47)
[2019-12-30] MEDS ORDERED: IBUPROFEN 600 MG TABLET (FP) PO ONE (18:52)
[2019-12-30 21:36] VITALS: BMI 29.9
[2019-12-30] MEDS ORDERED: MELATONIN 5 MG TABLETS PO ONE (22:14)
--- NOTE | 2019-12-30 22:45 | HP ---
CHIEF COMPLAINT: confusion and ongoing fever PCP:Dr. Jewell HISTORY OF PRESENT ILLNESS: Mrs. 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 She was seen here in the ED on Sunday for similar symptoms and found to have leukocytosis. She was prescribed Keflex for concern of UTI and she was discharged home. Per the patient's daughter, patient has been having trouble with self catheterizing and has been "very confused" lately and fever never went away. Patient's daughter also reported that patient accidentally took a few extra pills than the amount she was prescribed. Patient denied chest pain, shortness of breath, nausea, vomiting, cough, chills, back pain, diarrhea or any other related symptoms. ER course notable for fever of 102.3. Labs: WBC- 14.9(18.9 on 12/27), neutrophils 85.7, lymphocytes 7.9, lactic acid- 1.7 UA normal , urine and blood culture pending sodium 131, calcium 7.9 received IV Pipercillin 4.5gm Recent Travel: no PAST MEDICAL HISTORY: hyperlipidemia hypertension hypothyroidism paraplegia T3 level secondary to spinal abscess epidural PAST SURGICAL HISTORY: none Social History: Smoking:no Alcohol:no Drugs: no Allergies No Known Allergies Allergy (Unverified 06/30/12 13:39) HOME MEDICATIONS: Home Medications Medication Instructions Recorded Pregabalin [Lyrica] 100 mg PO BID 12/13/16 Aspirin [ASA -] 325 mg PO DAILY #60 tablet 12/18/16 Calcium 500Mg/Vit-D 200 Units 1 tab PO BID tab 12/18/16 [Os-Eric 500+D -] Cephalexin Monohydrate [Keflex -] 500 mg PO Q8H #21 capsule 12/28/19 Oxybutynin 5 mg PO BID 12/30/19 REVIEW OF SYSTEMS CONSTITUTIONAL: Absent: fever, chills, diaphoresis, generalized weakness, malaise, loss of appetite, weight change HEENT: Absent: rhinorrhea, nasal congestion, throat pain, throat swelling, difficulty swallowing, mouth swelling, ear pain, eye pain, visual changes CARDIOVASCULAR: Absent: chest pain, syncope, palpitations, irregular heart rate, lightheadedness, peripheral edema RESPIRATORY: Absent: cough, shortness of breath, dyspnea with exertion, orthopnea, wheezing, stridor, hemoptysis GASTROINTESTINAL: Absent: abdominal pain, abdominal distension, nausea, vomiting, diarrhea, constipation, melena, hematochezia GENITOURINARY: Absent: dysuria, frequency, urgency, hesitancy, hematuria, flank pain, genital pain MUSCULOSKELETAL: Absent: myalgia, arthralgia, joint swelling, back pain, neck pain SKIN: Absent: rash, itching, pallor HEMATOLOGIC/IMMUNOLOGIC: Absent: easy bleeding, easy bruising, lymphadenopathy, frequent infections ENDOCRINE: Absent: unexplained weight gain, unexplained weight loss, heat intolerance, cold intolerance NEUROLOGIC: Absent: headache, focal weakness or paresthesias, dizziness, unsteady gait, seizure, mental status changes, bladder or bowel incontinence PSYCHIATRIC: Absent: anxiety, depression, suicidal or homicidal ideation, hallucinations. PHYSICAL EXAMINATION Vital Signs - 24 hr 12/30/19 12/30/19 12/30/19 17:13 17:52 18:49 Temperature 101.2 F H 102.3 F H Pulse Rate 76 Pulse Rate [ 71 Right] Respiratory 16 16 Rate Blood Pressure 140/64 Blood Pressure 121/55 L [Right Arm] O2 Sat by Pulse 96 96 Oximetry (%) 12/30/19 20:00 Temperature 98.2 F Pulse Rate Pulse Rate [ 72 Right] Respiratory 17 Rate Blood Pressure Blood Pressure 131/56 L [Right Arm] O2 Sat by Pulse 97 Oximetry (%) General no acute distress Vital signs reviewed afebrile Neuor awake alert and oriented X3, T3 paraplegia Lungs CTA nonlabored breathing effort no rales no wheezing Heart s1s2 rate regular Abdomen soft nontender nondistended Extremities warm to touch no pitting edema no cyanosis,BLE paraplegia Skin nail beds and lips pink Mood calm Laboratory Results - last 24 hr 12/30/19 12/30/19 12/30/19 18:00 18:00 18:00 WBC 14.9 H RBC 3.75 Hgb 10.8 Hct 32.7 MCV 87.1 MCH 28.8 MCHC 33.0 RDW 11.9 Plt Count 329 MPV 8.9 Absolute Neuts (auto) 12.8 Neutrophils % 85.7 H Lymphocytes % 7.9 L Monocytes % 6.0 Eosinophils % 0.1 Basophils % 0.3 PT with INR 14.9 H INR 1.34 H PTT (Actin FS) 24.8 L Sodium Potassium Chloride Carbon Dioxide Anion Gap BUN Creatinine Est GFR (CKD-EPI)AfAm Est GFR (CKD-EPI)NonAf Random Glucose Lactic Acid Calcium Total Bilirubin AST ALT Alkaline Phosphatase Creatine Kinase Troponin I Total Protein Albumin Urine Color Yellow Urine Appearance Clear Urine pH 6.5 Urine Protein Negative Urine Glucose (UA) Negative Urine Ketones Negative Urine Blood Negative Urine Nitrite Negative Urine Bilirubin Negative Urine Urobilinogen 0.2 Ur Leukocyte Esterase Negative 12/30/19 12/30/19 12/30/19 18:00 18:00 18:00 WBC RBC Hgb Hct MCV MCH MCHC RDW Plt Count MPV Absolute Neuts (auto) Neutrophils % Lymphocytes % Monocytes % Eosinophils % Basophils % PT with INR INR PTT (Actin FS) Sodium 131 L Potassium 3.8 Chloride 99 Carbon Dioxide 19 L Anion Gap 13 BUN 13.0 Creatinine 0.6 Est GFR (CKD-EPI)AfAm 101.18 Est GFR (CKD-EPI)NonAf 87.30 Random Glucose 132 H Lactic Acid 1.7 Calcium 7.9 L Total Bilirubin 0.6 AST 45 H ALT 40 Alkaline Phosphatase 88 D Creatine Kinase 93 Troponin I < 0.03 Total Protein 6.5 Albumin 3.0 L Urine Color Urine Appearance Urine pH Urine Protein Urine Glucose (UA) Urine Ketones Urine Blood Urine Nitrite Urine Bilirubin Urine Urobilinogen Ur Leukocyte Esterase ASSESSMENT/PLAN: In summary Mrs. 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 She was evaluated in the ER 3 days ago and found to have significant leukocytosis and she was prescribed Keflex for a UTI and she was dischargd home. She presents with ongoing fever and confusion. She is being admitted to the Medicine Team for management of urospesis. 1. Persistent Fever likely secondary to Urosepsis WBC 14.9 < 18.8, lactic acid 1.7, UA negative(was taking keflex for 3 days ) febrile received IV zosyn 4.75 gm once c/w IV zosyn 3.375 gm q8hr self catherizes at home, has scruggs here Infectious Diseases - Dr. Tsang consulted follow up on urine and blood cultures 2. Hyperlipidemia not on statin therapy 3. Hypertension normotensive c/w amlodipine 4. Hypothyroidism c/w synthroid 5. Hypocalcemia repleted repeat calcium level in am 6. Hyponatremia continue to monitor repeat BMP in am 7. R/O COVID-19(low suspicion) follow up on COVID test maintain strict isolation and droplet precautions DVT Prophlaxis SCD's lovenox 40 mg daily FEN no IVF indicated BMP in am low sodium low fat diet Family Medical History Family History: Unremarkable Visit type - Medication Review Med list reviewed for High Risk Meds patients 65 and older: Yes - Emergency Visit Emergency Visit: Yes ED Registration Date: 12/30/19 Care time: The patient presented to the Emergency Department on the above date and was hospitalized for further evaluation of their emergent condition. - New Patient This patient is new to me today: Yes Date on this admission: 12/30/19 - Critical Care Critical Care patient: No
[2019-12-31] MEDS ORDERED: DEXTROSE 5%-WATER - 50 ML IVPB ONE ×3 (00:14→18:12)
[2019-12-31] MEDS ORDERED: PIPERACILLIN/TAZOBACTAM 3.375 GM VIAL IVPB ONE ×3 (00:14→18:12)
[2019-12-31] MEDS: PIPERACILLIN/TAZOB 3.375 GM 3.375 GM in DEXTROSE 5%-WATER - 50 ML IVPB SCH ×3 (01:40→18:24)
[2019-12-31] MEDS ORDERED: PIPERACILLIN/TAZOB 3.375 GM 3.375 GM in DEXTROSE 5%-WATER - 50 ML IVPB SCH (02:00)
[2019-12-31] MEDS: LEVOTHYROXINE NA 50 MCG TABLET (FP) PO SCH (06:32)
[2019-12-31 08:36] LABS: CALCIUM 7.6 mg/dl (8.5-10); CREATININE 0.5 mg/dl (0.55-1.3); POTASSIUM 3.9 mmol/L (3.5-5.1)
[2019-12-31 08:38] LABS: HEMOGLOBIN 10.4 GM/dl (10.7-15.3); MCH 29.1 pg (25.7-33.7); MCHC 33.5 g/dl (32.0-36.0); MEAN CELL VOLUME 86.9 fl (80-96); MEAN PLT VOLUME 8.7 fl (7.5-11.1); PLATELET COUNT 290 K/MM3 (134-434); RBC 3.57 M/mm3 (3.60-5.2); RDW 12.3 % (11.6-15.6); WHITE BLOOD COUNT 10.4 K/mm3 (4.0-10.8)
[2019-12-31] MEDS: ASPIRIN 325 MG TABLET PO SCH (09:58)
[2019-12-31] MEDS: CALCIUM 500MG/VIT-D 200 UNITS COMBO TABLET (FP) PO SCH ×2 (09:58→21:51)
[2019-12-31] MEDS: OXYBUTYNIN CHLORIDE 5 MG TABLET PO SCH ×2 (09:58→21:51)
[2019-12-31] MEDS: PREGABALIN 50 MG CAPSULE PO SCH ×2 (09:58→21:51)
[2019-12-31] MEDS: ENOXAPARIN NA (PORCINE) 40 MG/0.4 ML DISP.SYRIN SQ SCH (09:58)
[2019-12-31] MEDS: amLODIPine BESYLATE 2.5 MG TABLET (FP) PO SCH (09:58)
[2019-12-31] MEDS ORDERED: OXYBUTYNIN 5 MG PO SCH (10:00)
--- NOTE | 2019-12-31 10:28 | EKG ---
Test Reason : Blood Pressure : / mmHG Vent. Rate : 067 BPM Atrial Rate : 067 BPM P-R Int : 156 ms QRS Dur : 092 ms QT Int : 374 ms P-R-T Axes : 070 036 003 degrees QTc Int : 395 ms NORMAL SINUS RHYTHM NORMAL ECG WHEN COMPARED WITH ECG OF 14-DEC-2016 00:25, QT HAS SHORTENED Confirmed by MD Michel, Latrell ([id number]) on 12/31/2019 10:27:54 AM Referred By: DR LORENZO Confirmed By:Latrell Pearson MD
--- NOTE | 2019-12-31 11:17 | PN ---
Physical Exam: SUBJECTIVE: Patient seen and examined. Feeling well. Denies fevers/chills. Denies pain. Has a dry cough. OBJECTIVE: Vital Signs Period Temp Pulse Resp BP Sys/Sterling Pulse Ox Last 24 Hr 98.2 F-102.3 F 65-76 16-18 121-140/50-64 96-100 GENERAL: The patient is awake, alert, and fully oriented, in no acute distress. HEAD: Normal with no signs of trauma. EYES: PERRL, extraocular movements intact, sclera anicteric, conjunctiva clear. No ptosis. ENT: Ears normal, nares patent, oropharynx clear without exudates, moist mucous membranes. NECK: Trachea midline, full range of motion, supple. LUNGS: Breath sounds equal, clear to auscultation bilaterally, no wheezes, no crackles, no accessory muscle use. HEART: Regular rate and rhythm, S1, S2 without murmur, rub or gallop. ABDOMEN: Soft, nontender, nondistended, normoactive bowel sounds, no guarding, no rebound, no hepatosplenomegaly, no masses. EXTREMITIES: 2+ pulses, warm, well-perfused, no edema. NEUROLOGICAL: Cranial nerves II through XII grossly intact. Paraplegic. PSYCH: Normal mood, normal affect. SKIN: Warm, dry, normal turgor, no rashes or lesions noted Laboratory Results - last 24 hr 12/30/19 12/30/19 12/30/19 18:00 18:00 18:00 WBC 14.9 H RBC 3.75 Hgb 10.8 Hct 32.7 MCV 87.1 MCH 28.8 MCHC 33.0 RDW 11.9 Plt Count 329 MPV 8.9 Absolute Neuts (auto) 12.8 Neutrophils % 85.7 H Lymphocytes % 7.9 L Monocytes % 6.0 Eosinophils % 0.1 Basophils % 0.3 PT with INR 14.9 H INR 1.34 H PTT (Actin FS) 24.8 L Sodium Potassium Chloride Carbon Dioxide Anion Gap BUN Creatinine Est GFR (CKD-EPI)AfAm Est GFR (CKD-EPI)NonAf Random Glucose Lactic Acid Calcium Total Bilirubin AST ALT Alkaline Phosphatase Creatine Kinase Troponin I Total Protein Albumin Urine Color Yellow Urine Appearance Clear Urine pH 6.5 Urine Protein Negative Urine Glucose (UA) Negative Urine Ketones Negative Urine Blood Negative Urine Nitrite Negative Urine Bilirubin Negative Urine Urobilinogen 0.2 Ur Leukocyte Esterase Negative 12/30/19 12/30/19 12/30/19 18:00 18:00 18:00 WBC RBC Hgb Hct MCV MCH MCHC RDW Plt Count MPV Absolute Neuts (auto) Neutrophils % Lymphocytes % Monocytes % Eosinophils % Basophils % PT with INR INR PTT (Actin FS) Sodium 131 L Potassium 3.8 Chloride 99 Carbon Dioxide 19 L Anion Gap 13 BUN 13.0 Creatinine 0.6 Est GFR (CKD-EPI)AfAm 101.18 Est GFR (CKD-EPI)NonAf 87.30 Random Glucose 132 H Lactic Acid 1.7 Calcium 7.9 L Total Bilirubin 0.6 AST 45 H ALT 40 Alkaline Phosphatase 88 D Creatine Kinase 93 Troponin I < 0.03 Total Protein 6.5 Albumin 3.0 L Urine Color Urine Appearance Urine pH Urine Protein Urine Glucose (UA) Urine Ketones Urine Blood Urine Nitrite Urine Bilirubin Urine Urobilinogen Ur Leukocyte Esterase 12/30/19 12/31/19 12/31/19 22:38 07:02 07:02 WBC 10.4 RBC 3.57 L Hgb 10.4 L Hct 31.0 L MCV 86.9 MCH 29.1 MCHC 33.5 RDW 12.3 Plt Count 290 MPV 8.7 Absolute Neuts (auto) Neutrophils % Lymphocytes % Monocytes % Eosinophils % Basophils % PT with INR INR PTT (Actin FS) Sodium 139 Potassium 3.9 Chloride 109 H Carbon Dioxide 20 L Anion Gap 10 BUN 14.0 Creatinine 0.5 L Est GFR (CKD-EPI)AfAm 107.44 Est GFR (CKD-EPI)NonAf 92.70 Random Glucose 108 H Lactic Acid 1.8 Calcium 7.6 L Total Bilirubin AST ALT Alkaline Phosphatase Creatine Kinase Troponin I Total Protein Albumin Urine Color Urine Appearance Urine pH Urine Protein Urine Glucose (UA) Urine Ketones Urine Blood Urine Nitrite Urine Bilirubin Urine Urobilinogen Ur Leukocyte Esterase Active Medications Generic Name Dose Route Start Last Admin Trade Name Freq PRN Reason Stop Dose Admin Amlodipine Besylate 2.5 mg 12/31/19 10:00 12/31/19 09:58 Norvasc - PO 2.5 mg DAILY OLAYINKA Administration Aspirin 325 mg 12/31/19 10:00 12/31/19 09:58 Asa - PO 325 mg DAILY OLAYINKA Administration Calcium Carbonate 650 mg 12/31/19 23:12 Calcium Carbonate - PO 12/31/19 23:13 ONCE ONE Calcium Carbonate/Cholecalciferol 1 tab 12/31/19 10:00 12/31/19 09:58 Os-Eric 500+D - PO 1 tab BID OLAYINKA Administration Enoxaparin Sodium 40 mg 12/31/19 10:00 12/31/19 09:58 Lovenox - SQ 40 mg DAILY OLAYINKA Administration Piperacillin Sod/Tazobactam 50 mls @ 100 mls/hr 12/31/19 02:00 Sod 3.375 gm/ Dextrose IVPB Q8H-IV OLAYINKA Protocol Piperacillin Sod/Tazobactam 50 mls @ 100 mls/hr 12/31/19 02:00 12/31/19 09:58 Sod 3.375 gm/ Dextrose IVPB 12/31/19 18:29 100 mls/hr Q8H-IV OLAYINKA Administration Protocol Levothyroxine Sodium 50 mcg 12/31/19 07:00 12/31/19 06:32 Synthroid - PO 50 mcg DAILY@0700 OLAYINKA Administration Oxybutynin Chloride 5 mg 12/31/19 10:00 12/31/19 09:58 Ditropan - PO 5 mg BID OLAYINKA Administration Pregabalin 100 mg 12/31/19 10:00 12/31/19 09:58 Lyrica - PO 100 mg BID OLAYINKA Administration ASSESSMENT/PLAN: 79-year-old female with a significant past medical history of hypertension, hyperlipidemia, hypothyroidism and paraplegia for 19 years 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 Sepsis likely secondary to UTI Banda catheter in place Continue Zosyn Await ID input 2. Hyperlipidemia Not on statin therapy 3. Hypertension At goal Continue amlodipine 4. Hypothyroidism Continue levothyroxine 5. Hyponatremia Normalized 6. R/O COVID-19 (low suspicion) Follow up on COVID PCR Maintain strict isolation and droplet precautions 7. DVT Prophlaxis SCDs Lovenox 40mg sq daily 8. F/E/N Calcium corrected for albumin is normal PO intake is adequate Low sodium, low fat diet FULL CODE Dispo: Requires inpatient services Visit type - Emergency Visit Emergency Visit: Yes ED Registration Date: 12/30/19 Care time: The patient presented to the Emergency Department on the above date and was hospitalized for further evaluation of their emergent condition. - New Patient This patient is new to me today: No - Critical Care Critical Care patient: No - Discharge Referral Referred to [facility] Med P.C[facility] No - Medication Review Med list reviewed for High Risk Meds patients 65 and older: Yes
--- NOTE | 2019-12-31 12:27 | CON.ID ---
Consult - Past Medical History ...LMP Comment: 79 YEARS OLD ...: No - Alcohol/Substance Use Hx Alcohol Use: No - Smoking History Smoking history: Never smoked Have you smoked in the past 12 months: No Home Medications - Allergies Allergies/Adverse Reactions: Allergies Allergy/AdvReac Type Severity Reaction Status Date / Time No Known Allergies Allergy Unverified 06/30/12 13:39 - Home Medications Home Medications: Ambulatory Orders Pregabalin [Lyrica] 100 mg PO BID 12/13/16 Aspirin [ASA -] 325 mg PO DAILY #60 tablet 12/18/16 Calcium 500Mg/Vit-D 200 Units [Os-Eric 500+D -] 1 tab PO BID tab 12/18/16 Cephalexin Monohydrate [Keflex -] 500 mg PO Q8H #21 capsule 12/28/19 Oxybutynin 5 mg PO BID 12/30/19 Physical Exam Vital Signs: Vital Signs Temperature 99.1 F 12/31/19 06:00 Pulse Rate 65 12/31/19 06:00 Respiratory Rate 18 12/31/19 06:00 Blood Pressure 129/59 L 12/31/19 06:00 O2 Sat by Pulse Oximetry (%) 96 12/31/19 06:00 Labs: CBC, BMP 12/31/19 07:02 12/31/19 07:02
[2019-12-31] MEDS: ACETAMINOPHEN 325 MG TABLET (FP) PO PRN (21:50)
[2019-12-31] MEDS ORDERED: CALCIUM CARBONATE 650 MG TABLET PO ONE (23:12)
[2020-01-01] MEDS ORDERED: PIPERACILLIN/TAZOBACTAM 3.375 GM VIAL IVPB ONE ×3 (02:30→16:09)
[2020-01-01] MEDS ORDERED: DEXTROSE 5%-WATER - 50 ML IVPB ONE ×3 (02:31→16:09)
[2020-01-01] MEDS: PIPERACILLIN/TAZOB 3.375 GM 3.375 GM in DEXTROSE 5%-WATER - 50 ML IVPB SCH ×3 (02:35→18:10)
[2020-01-01] MEDS ORDERED: LOCK ITEM NR ONE ×2 (05:24→05:26)
[2020-01-01] MEDS: LEVOTHYROXINE NA 50 MCG TABLET (FP) PO SCH (06:47)
[2020-01-01 08:23] LABS: BASO % 0.6 % (0-2.0); EOS % 0.2 % (0-4.5); HEMATOCRIT 30.8 % (32.4-45.2); HEMOGLOBIN 10.3 GM/dl (10.7-15.3); LYMPH % 13.6 % (8-40); MCH 29.6 pg (25.7-33.7); MCHC 33.5 g/dl (32.0-36.0); MEAN CELL VOLUME 88.3 fl (80-96); MEAN PLT VOLUME 8.7 fl (7.5-11.1); MONO % 4.9 % (3.8-10.2); NEUT % 80.7 % (42.8-82.8); PLATELET COUNT 325 K/MM3 (134-434); RBC 3.48 M/mm3 (3.60-5.2); RDW 12.2 % (11.6-15.6); WHITE BLOOD COUNT 10.6 K/mm3 (4.0-10.8)
[2020-01-01 08:27] LABS: CALCIUM 7.9 mg/dl (8.5-10); CREATININE 0.6 mg/dl (0.55-1.3); POTASSIUM 3.7 mmol/L (3.5-5.1)
[2020-01-01] MEDS ORDERED: POTASSIUM CHLORIDE ORAL LIQUID 20 MEQ/15 ML PO ONE (09:00)
[2020-01-01] MEDS: ASPIRIN 325 MG TABLET PO SCH (09:08)
[2020-01-01] MEDS: OXYBUTYNIN CHLORIDE 5 MG TABLET PO SCH ×2 (09:10→21:33)
[2020-01-01] MEDS: PREGABALIN 50 MG CAPSULE PO SCH ×2 (09:10→21:34)
[2020-01-01] MEDS: amLODIPine BESYLATE 2.5 MG TABLET (FP) PO SCH (09:10)
[2020-01-01] MEDS: CALCIUM 500MG/VIT-D 200 UNITS COMBO TABLET (FP) PO SCH ×2 (09:10→21:34)
[2020-01-01] MEDS: ENOXAPARIN NA (PORCINE) 40 MG/0.4 ML DISP.SYRIN SQ SCH (09:11)
--- NOTE | 2020-01-01 12:15 | PN ---
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 She was seen here in the ED on Sunday, 12/27 for similar symptoms and found to have leukocytosis. She was prescribed Keflex for concern of UTI and she was discharged home. - Current Medication List Current Medications: Active Medications Acetaminophen (Tylenol -) 650 mg PO Q6H PRN PRN Reason: FEVER Last Admin: 12/31/19 21:50 Dose: 650 mg Documented by: Amlodipine Besylate (Norvasc -) 2.5 mg PO DAILY [facility] Last Admin: 01/01/20 09:10 Dose: 2.5 mg Documented by: Aspirin (Asa -) 325 mg PO DAILY [facility] Last Admin: 01/01/20 09:08 Dose: 325 mg Documented by: Calcium Carbonate/Cholecalciferol (Os-Eric 500+D -) 1 tab PO BID [facility] Last Admin: 01/01/20 09:10 Dose: 1 tab Documented by: Enoxaparin Sodium (Lovenox -) 40 mg SQ DAILY [facility] Last Admin: 01/01/20 09:11 Dose: 40 mg Documented by: Piperacillin Sod/Tazobactam (Sod 3.375 gm/ Dextrose) 50 mls @ 100 mls/hr IVPB Q8H-IV OLAYINKA; Protocol Last Admin: 01/01/20 09:04 Dose: 100 mls/hr Documented by: Levothyroxine Sodium (Synthroid -) 50 mcg PO DAILY@0700 [facility] Last Admin: 01/01/20 06:47 Dose: 50 mcg Documented by: Oxybutynin Chloride (Ditropan -) 5 mg PO BID [facility] Last Admin: 01/01/20 09:10 Dose: 5 mg Documented by: Pregabalin (Lyrica -) 100 mg PO BID [facility] Last Admin: 01/01/20 09:10 Dose: 100 mg Documented by: - Objective Vital Signs: Vital Signs Temperature 98.8 F 01/01/20 09:24 Pulse Rate 74 01/01/20 09:21 Respiratory Rate 20 01/01/20 09:21 Blood Pressure 140/52 L 01/01/20 09:21 O2 Sat by Pulse Oximetry (%) 96 01/01/20 09:21 Constitutional: Yes: Well Nourished, No Distress, Calm HENT: Yes: Atraumatic, Normocephalic Neck: Yes: Supple Cardiovascular: Yes: Regular Rate and Rhythm Respiratory: Yes: CTA Bilaterally Gastrointestinal: Yes: Normal Bowel Sounds, Soft, Abdomen, Obese ...Rectal Exam: Yes: Deferred Genitourinary: Yes: Banda Present Musculoskeletal: Yes: Muscle Weakness Extremities: Yes: Other (b/l LE flaccid 2/2 paralysis) Edema: No Peripheral Pulses: Left Radial: 2+, Right Radial: 2+ Integumentary: Yes: WNL Neurological: Yes: Alert, Oriented ...Motor Strength: LLE (1/5), RLE (1/5) Psychiatric: Yes: Alert, Oriented Labs: CBC, BMP 01/01/20 07:18 01/01/20 07:18 INR, PTT INR 1.34 (0.82-1.09) H 12/30/19 18:00 Problem List - Problems (1) Hypertension Assessment/Plan: cardiac diet norvasc daily Code(s): I10 - ESSENTIAL (PRIMARY) HYPERTENSION (2) Hypothyroidism Assessment/Plan: c/w synthroid 50mcg daily TSH and T4 free with AM labs Code(s): E03.9 - HYPOTHYROIDISM, UNSPECIFIED Qualifiers: Hypothyroidism type: acquired Qualified Code(s): E03.9 - Hypothyroidism, unspecified (3) Paraplegia Assessment/Plan: Turn and position q2hrs Code(s): G82.20 - PARAPLEGIA, UNSPECIFIED (4) UTI (urinary tract infection) Assessment/Plan: c/w Zosyn, will transition to oral regimen on 01/01 prior to discharge home. trend WBC and temp curve APAP PRN fever > 101.0 repeat UCX sent on 12/29 negative Code(s): N39.0 - URINARY TRACT INFECTION, SITE NOT SPECIFIED Qualifiers: Urinary tract infection type: acute cystitis Hematuria presence: without hematuria Qualified Code(s): N30.00 - Acute cystitis without hematuria Impression/Plan Impression/Plan: Code status: Full Dispo: pt can be discharge tomorrow if she remains afebrile and hemodynamically stable Visit type - Emergency Visit Emergency Visit: Yes ED Registration Date: 12/30/19 Care time: The patient presented to the Emergency Department on the above date and was hospitalized for further evaluation of their emergent condition. - New Patient This patient is new to me today: Yes Date on this admission: 01/01/20 - Critical Care Critical Care patient: No - Discharge Referral Referred to [facility] Med P.C.: No - Medication Review Med list reviewed for High Risk Meds patients 65 and older: Yes
[2020-01-01] MEDS: ACETAMINOPHEN 325 MG TABLET (FP) PO PRN (20:40)
[2020-01-01] MEDS: DOCUSATE SODIUM 100 MG CAPSULE (FP) PO SCH (21:33)
[2020-01-01] MEDS ORDERED: SENNOSIDES 8.6MG TABLET (FP) PO SCH (22:00)
[2020-01-02] MEDS: PIPERACILLIN/TAZOB 3.375 GM 3.375 GM in DEXTROSE 5%-WATER - 50 ML IVPB SCH ×2 (02:40→10:59)
[2020-01-02] MEDS ORDERED: PIPERACILLIN/TAZOBACTAM 3.375 GM VIAL IVPB ONE ×2 (03:58→10:35)
[2020-01-02] MEDS ORDERED: DEXTROSE 5%-WATER - 50 ML IVPB ONE ×2 (03:58→10:36)
[2020-01-02] MEDS: ACETAMINOPHEN 325 MG TABLET (FP) PO PRN (04:48)
[2020-01-02] MEDS: LEVOTHYROXINE NA 50 MCG TABLET (FP) PO SCH (06:37)
[2020-01-02 07:58] LABS: CALCIUM 8.1 mg/dl (8.5-10); CREATININE 0.6 mg/dl (0.55-1.3); POTASSIUM 3.5 mmol/L (3.5-5.1)
[2020-01-02 08:15] LABS: BASO % 0.8 % (0-2.0); EOS % 0.3 % (0-4.5); HEMATOCRIT 31.8 % (32.4-45.2); HEMOGLOBIN 10.6 GM/dl (10.7-15.3); LYMPH % 12.8 % (8-40); MCH 29.6 pg (25.7-33.7); MCHC 33.5 g/dl (32.0-36.0); MEAN CELL VOLUME 88.5 fl (80-96); MONO % 5.6 % (3.8-10.2); NEUT % 80.5 % (42.8-82.8); PLATELET COUNT 347 K/MM3 (134-434); RBC 3.59 M/mm3 (3.60-5.2); RDW 12.5 % (11.6-15.6)
[2020-01-02] MEDS: OXYBUTYNIN CHLORIDE 5 MG TABLET PO SCH ×2 (10:59→21:04)
[2020-01-02] MEDS: ENOXAPARIN NA (PORCINE) 40 MG/0.4 ML DISP.SYRIN SQ SCH (10:59)
[2020-01-02] MEDS: ASPIRIN 325 MG TABLET PO SCH (10:59)
[2020-01-02] MEDS: CALCIUM 500MG/VIT-D 200 UNITS COMBO TABLET (FP) PO SCH ×2 (10:59→21:05)
[2020-01-02] MEDS: amLODIPine BESYLATE 2.5 MG TABLET (FP) PO SCH ×2 (10:59→21:05)
[2020-01-02] MEDS: PREGABALIN 50 MG CAPSULE PO SCH ×2 (10:59→21:05)
[2020-01-02] MEDS: DOCUSATE SODIUM 100 MG CAPSULE (FP) PO SCH (10:59)
--- NOTE | 2020-01-02 12:33 | PN ---
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 She was seen here in the ED on Sunday, 12/27 for similar symptoms and found to have leukocytosis. She was prescribed Keflex for concern of UTI and she was discharged home. - Current Medication List Current Medications: Active Medications Acetaminophen (Tylenol -) 650 mg PO Q6H PRN PRN Reason: FEVER Last Admin: 01/02/20 04:48 Dose: 650 mg Documented by: Amlodipine Besylate (Norvasc -) 2.5 mg PO DAILY [facility] Last Admin: 01/02/20 10:59 Dose: 2.5 mg Documented by: Aspirin (Asa -) 325 mg PO DAILY [facility] Last Admin: 01/02/20 10:59 Dose: 325 mg Documented by: Calcium Carbonate/Cholecalciferol (Os-Eric 500+D -) 1 tab PO BID [facility] Last Admin: 01/02/20 10:59 Dose: 1 tab Documented by: Docusate Sodium (Colace -) 100 mg PO BID [facility] Last Admin: 01/02/20 10:59 Dose: 100 mg Documented by: Enoxaparin Sodium (Lovenox -) 40 mg SQ DAILY [facility] Last Admin: 01/02/20 10:59 Dose: 40 mg Documented by: Piperacillin Sod/Tazobactam (Sod 3.375 gm/ Dextrose) 50 mls @ 100 mls/hr IVPB Q8H-IV OLAYINKA; Protocol Last Admin: 01/02/20 10:59 Dose: 100 mls/hr Documented by: Levothyroxine Sodium (Synthroid -) 50 mcg PO DAILY@0700 [facility] Last Admin: 01/02/20 06:37 Dose: 50 mcg Documented by: Oxybutynin Chloride (Ditropan -) 5 mg PO BID [facility] Last Admin: 01/02/20 10:59 Dose: 5 mg Documented by: Pregabalin (Lyrica -) 100 mg PO BID [facility] Last Admin: 01/02/20 10:59 Dose: 100 mg Documented by: Senna (Senna -) 1 tab PO HS [facility] Last Admin: 01/01/20 21:34 Dose: 1 tab Documented by: - Objective Vital Signs: Vital Signs Temperature 100.7 F H 01/02/20 06:00 Pulse Rate 74 01/02/20 06:00 Respiratory Rate 18 01/02/20 06:00 Blood Pressure 164/70 01/02/20 06:00 O2 Sat by Pulse Oximetry (%) 96 01/02/20 06:00 Constitutional: Yes: Well Nourished, No Distress, Calm, Obese Eyes: Yes: Conjunctiva Clear HENT: Yes: Atraumatic, Normocephalic Neck: Yes: Supple Cardiovascular: Yes: Regular Rate and Rhythm Respiratory: Yes: Regular, CTA Bilaterally Gastrointestinal: Yes: Soft, Abdomen, Obese ...Rectal Exam: Yes: Deferred Genitourinary: Yes: Scruggs Present Musculoskeletal: Yes: Muscle Weakness (lower extremities) Extremities: Yes: Other (lower extremity flaccidity and paralysis) Edema: No Peripheral Pulses: Left Radial: 2+, Right Radial: 2+ Integumentary: Yes: WNL Neurological: Yes: Weakness (lower extremities) ...Motor Strength: LUE (5/5), RUE (5/5) Psychiatric: Yes: Alert, Oriented Labs: CBC, BMP 01/02/20 06:52 01/02/20 06:52 INR, PTT INR 1.34 (0.82-1.09) H 12/30/19 18:00 Problem List - Problems (1) Hypertension Assessment/Plan: cardiac diet norvasc 2.5mg daily, will increase to 2.5mg BID today due to uptrending BP Code(s): I10 - ESSENTIAL (PRIMARY) HYPERTENSION (2) Hypothyroidism Assessment/Plan: c/w synthroid 50mcg daily TSH and T4 free with AM labs Code(s): E03.9 - HYPOTHYROIDISM, UNSPECIFIED Qualifiers: Hypothyroidism type: acquired Qualified Code(s): E03.9 - Hypothyroidism, unspecified (3) Paraplegia Assessment/Plan: Turn and position q2hrs d/c bowel regimen due to loose stool x 1 overnight Code(s): G82.20 - PARAPLEGIA, UNSPECIFIED (4) UTI (urinary tract infection) Assessment/Plan: Zosyn completed repeat UCX sent on 12/29 negative Code(s): N39.0 - URINARY TRACT INFECTION, SITE NOT SPECIFIED Qualifiers: Urinary tract infection type: acute cystitis Hematuria presence: without hematuria Qualified Code(s): N30.00 - Acute cystitis without hematuria (5) Febrile illness Assessment/Plan: Oral flagyl started at the recommendation of ID trend WBC and temp curve APAP PRN fever > 101.0 will insert new scruggs today Code(s): R50.9 - FEVER, UNSPECIFIED Impression/Plan Impression/Plan: Code status: Full DISPO: pt continues to experience low grade temps, pt evaluated by ID. If fever persists, pt will need to undergo CT chest/abd/pelvis in the AM. Visit type - Emergency Visit Emergency Visit: Yes ED Registration Date: 12/30/19 Care time: The patient presented to the Emergency Department on the above date and was hospitalized for further evaluation of their emergent condition. - New Patient This patient is new to me today: No - Critical Care Critical Care patient: No - Discharge Referral Referred to [facility] No - Medication Review Med list reviewed for High Risk Meds patients 65 and older: Yes
--- NOTE | 2020-01-02 13:47 | PN ---
Progress Note, Physician History of Present Illness: patient says she is ok she is sweating and also mentions that she had dirrhoea last night - Current Medication List Current Medications: Active Medications Acetaminophen (Tylenol -) 650 mg PO Q6H PRN PRN Reason: FEVER Last Admin: 01/02/20 04:48 Dose: 650 mg Documented by: Amlodipine Besylate (Norvasc -) 2.5 mg PO DAILY [facility] Last Admin: 01/02/20 10:59 Dose: 2.5 mg Documented by: Aspirin (Asa -) 325 mg PO DAILY [facility] Last Admin: 01/02/20 10:59 Dose: 325 mg Documented by: Calcium Carbonate/Cholecalciferol (Os-Eric 500+D -) 1 tab PO BID [facility] Last Admin: 01/02/20 10:59 Dose: 1 tab Documented by: Docusate Sodium (Colace -) 100 mg PO BID [facility] Last Admin: 01/02/20 10:59 Dose: 100 mg Documented by: Enoxaparin Sodium (Lovenox -) 40 mg SQ DAILY [facility] Last Admin: 01/02/20 10:59 Dose: 40 mg Documented by: Levothyroxine Sodium (Synthroid -) 50 mcg PO DAILY@0700 [facility] Last Admin: 01/02/20 06:37 Dose: 50 mcg Documented by: Oxybutynin Chloride (Ditropan -) 5 mg PO BID [facility] Last Admin: 01/02/20 10:59 Dose: 5 mg Documented by: Pregabalin (Lyrica -) 100 mg PO BID [facility] Last Admin: 01/02/20 10:59 Dose: 100 mg Documented by: Senna (Senna -) 1 tab PO HS [facility] Last Admin: 01/01/20 21:34 Dose: 1 tab Documented by: - Objective Vital Signs: Vital Signs Temperature 100.7 F H 01/02/20 09:00 Pulse Rate 74 01/02/20 12:00 Respiratory Rate 18 01/02/20 12:00 Blood Pressure 164/70 01/02/20 09:00 O2 Sat by Pulse Oximetry (%) 96 01/02/20 12:00 Constitutional: Yes: No Distress, Calm Cardiovascular: Yes: S1, S2 Respiratory: Yes: Regular, CTA Bilaterally Gastrointestinal: Yes: Normal Bowel Sounds, Soft Genitourinary: Yes: Banda Present Musculoskeletal: Yes: WNL Extremities: Yes: WNL Neurological: Yes: Alert, Oriented Psychiatric: Yes: Alert, Oriented Labs: CBC, BMP 01/02/20 06:52 01/02/20 06:52 INR, PTT INR 1.34 (0.82-1.09) H 12/30/19 18:00 Assessment/Plan 79-year-old female with a significant past medical history of hypertension, hyperlipidemia, hypothyroidism and paraplegia for 19 years 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 Sepsis likely secondary to UTI 2. Hyperlipidemia 3. Hypertension 4. Hypothyroidism 5. Hyponatremia plan will stop zosyn all cx results noted will start her on oral flagyl if patient continues to spike fever patient will need to be ureña cultured and ureña scanned will d/w the team
[2020-01-02] MEDS: metroNIDAZOLE 250 MG TABLET PO SCH (21:04)
[2020-01-03] MEDS: ACETAMINOPHEN 325 MG TABLET (FP) PO PRN ×2 (00:02→06:03)
[2020-01-03] MEDS: LEVOTHYROXINE NA 50 MCG TABLET (FP) PO SCH (06:02)
[2020-01-03] MEDS: metroNIDAZOLE 250 MG TABLET PO SCH ×3 (06:02→21:13)
[2020-01-03 08:26] LABS: HEMOGLOBIN 10.6 GM/dl (10.7-15.3); MCH 28.1 pg (25.7-33.7); MCHC 32.2 g/dl (32.0-36.0); MEAN CELL VOLUME 87.2 fl (80-96); MEAN PLT VOLUME 8.4 fl (7.5-11.1); PLATELET COUNT 419 K/MM3 (134-434); RBC 3.78 M/mm3 (3.60-5.2); RDW 12.2 % (11.6-15.6); WHITE BLOOD COUNT 9.6 K/mm3 (4.0-10.8)
[2020-01-03 08:42] LABS: ALBUMIN 2.7 g/dl (3.4-5.0); BILIRUBIN,TOTAL 0.6 mg/dl (0.2-1); CALCIUM 8.1 mg/dl (8.5-10); CREATININE 0.6 mg/dl (0.55-1.3); MAGNESIUM 2.2 mg/dL (1.8-2.4); POTASSIUM 3.4 mmol/L (3.5-5.1)
[2020-01-03] MEDS ORDERED: POTASSIUM CHLORIDE ORAL LIQUID 20 MEQ/15 ML PO ONE (08:53)
[2020-01-03] MEDS: PREGABALIN 50 MG CAPSULE PO SCH ×2 (10:18→21:13)
--- NOTE | 2020-01-03 10:18 | PN ---
Physical Exam: SUBJECTIVE: Patient seen and examined, no reports of diarrhea overnight. c/o headache low grade temp last night, 100.7, repeat blood, urine cx ordered CT A/P/C ordered OBJECTIVE: Vital Signs Period Temp Pulse Resp BP Sys/Sterling Pulse Ox Last 24 Hr 98.4 F-100.7 F 66-74 18-18 131-159/56-70 91-97 GENERAL: The patient is awake, alert, and fully oriented, in no acute distress. HEAD: Normal with no signs of trauma. EYES: PERRL, extraocular movements intact, sclera anicteric, conjunctiva clear. No ptosis. ENT: Ears normal, nares patent, oropharynx clear without exudates, moist mucous membranes. NECK: Trachea midline, full range of motion, supple. LUNGS: Breath sounds equal, clear to auscultation bilaterally, no wheezes, no crackles, no accessory muscle use. HEART: Regular rate and rhythm, S1, S2 without murmur, rub or gallop. ABDOMEN: Soft, nontender, nondistended, normoactive bowel sounds, no guarding, no rebound, no hepatosplenomegaly, no masses. EXTREMITIES: 2+ pulses, warm, well-perfused, no edema. NEUROLOGICAL: Cranial nerves II through XII grossly intact. Normal speech, gait not observed. PSYCH: Normal mood, normal affect. SKIN: Warm, dry, normal turgor, no rashes or lesions noted Laboratory Results - last 24 hr 01/02/20 01/03/20 01/03/20 06:52 07:35 07:35 WBC 9.6 RBC 3.78 Hgb 10.6 L Hct 33.0 MCV 87.2 MCH 28.1 MCHC 32.2 RDW 12.2 Plt Count 419 MPV 8.4 Sodium 137 Potassium 3.4 L Chloride 104 Carbon Dioxide 23 Anion Gap 10 BUN 10.0 Creatinine 0.6 Est GFR (CKD-EPI)AfAm 101.18 Est GFR (CKD-EPI)NonAf 87.30 Random Glucose 106 Calcium 8.1 L Magnesium 2.2 Total Bilirubin 0.6 AST 24 ALT 45 Alkaline Phosphatase 90 Total Protein 6.0 L Albumin 2.7 L TSH 3.53 Active Medications Generic Name Dose Route Start Last Admin Trade Name Freq PRN Reason Stop Dose Admin Acetaminophen 650 mg 12/31/19 21:10 01/03/20 06:03 Tylenol - PO 650 mg Q6H PRN Administration FEVER Amlodipine Besylate 2.5 mg 01/02/20 22:00 01/02/20 21:05 Norvasc - PO 2.5 mg BID [facility] Administration Aspirin 325 mg 12/31/19 10:00 01/02/20 10:59 Asa - PO 325 mg DAILY [facility] Administration Calcium Carbonate/Cholecalciferol 1 tab 12/31/19 10:00 01/02/20 21:05 Os-Eric 500+D - PO 1 tab BID [facility] Administration Enoxaparin Sodium 40 mg 12/31/19 10:00 01/02/20 10:59 Lovenox - SQ 40 mg DAILY [facility] Administration Levothyroxine Sodium 50 mcg 12/31/19 07:00 01/03/20 06:02 Synthroid - PO 50 mcg DAILY@0700 [facility] Administration Metronidazole 500 mg 01/02/20 14:00 01/03/20 06:02 Flagyl - PO 500 mg TID [facility] Administration Oxybutynin Chloride 5 mg 12/31/19 10:00 01/02/20 21:04 Ditropan - PO 5 mg BID [facility] Administration Pregabalin 100 mg 12/31/19 10:00 01/02/20 21:05 Lyrica - PO 100 mg BID [facility] Administration ASSESSMENT/PLAN: 79 year old female with a significant past medical history of hypertension, hyperlipidemia, paraplegia for 19 years at T3 level secondary to spinal epidural abscess, and frequent UTIs (patient self catheterizes) # UTI (urinary tract infection) Assessment/Plan: Zosyn completed repeat UCX sent on 12/29 negative Code(s): N39.0 - URINARY TRACT INFECTION, SITE NOT SPECIFIED Qualifiers: Urinary tract infection type: acute cystitis Hematuria presence: without hematuria Qualified Code(s): N30.00 - Acute cystitis without hematuria # Febrile illness Assessment/Plan: Oral flagyl started at the recommendation of ID trend WBC and temp curve APAP PRN fever > 101.0 new scruggs inserted 01/01 -panculture, CT A/P/C ordered Code(s): R50.9 - FEVER, UNSPECIFIED #Hypertension Assessment/Plan: cardiac diet norvasc 2.5mg daily, will increase to 2.5mg BID today due to uptrending BP Code(s): I10 - ESSENTIAL (PRIMARY) HYPERTENSION #Hypothyroidism Assessment/Plan: c/w synthroid 50mcg daily TSH and T4 free wnl Code(s): E03.9 - HYPOTHYROIDISM, UNSPECIFIED Qualifiers: Hypothyroidism type: acquired Qualified Code(s): E03.9 - Hypothyroidism, unspecified #Paraplegia Assessment/Plan: Turn and position q2hrs d/c bowel regimen due to loose stool x 1 overnight Code(s): G82.20 - PARAPLEGIA, UNSPECIFIED Full Code Dispo: requires inpatient care Visit type - Emergency Visit Emergency Visit: Yes ED Registration Date: 12/30/19 Care time: The patient presented to the Emergency Department on the above date and was hospitalized for further evaluation of their emergent condition. - New Patient This patient is new to me today: Yes Date on this admission: 01/03/20 - Critical Care Critical Care patient: No - Medication Review Med list reviewed for High Risk Meds patients 65 and older: No
[2020-01-03] MEDS: amLODIPine BESYLATE 2.5 MG TABLET (FP) PO SCH ×2 (10:19→21:13)
[2020-01-03] MEDS: CALCIUM 500MG/VIT-D 200 UNITS COMBO TABLET (FP) PO SCH ×2 (10:19→21:13)
[2020-01-03] MEDS: OXYBUTYNIN CHLORIDE 5 MG TABLET PO SCH ×2 (10:19→21:13)
[2020-01-03] MEDS: ASPIRIN 325 MG TABLET PO SCH (10:19)
[2020-01-03] MEDS: ENOXAPARIN NA (PORCINE) 40 MG/0.4 ML DISP.SYRIN SQ SCH (10:19)
--- NOTE | 2020-01-03 12:07 | PN ---
Progress Note, Physician History of Present Illness: Pt with low grade fever Tmax 99.7F last night. Currently afebrile, without distress. Denies multiple loose BMs or abd pain. - Current Medication List Current Medications: Active Medications Acetaminophen (Tylenol -) 650 mg PO Q6H PRN PRN Reason: FEVER Last Admin: 01/03/20 06:03 Dose: 650 mg Documented by: Amlodipine Besylate (Norvasc -) 2.5 mg PO BID [facility] Last Admin: 01/03/20 10:19 Dose: 2.5 mg Documented by: Aspirin (Asa -) 325 mg PO DAILY [facility] Last Admin: 01/03/20 10:19 Dose: 325 mg Documented by: Calcium Carbonate/Cholecalciferol (Os-Eric 500+D -) 1 tab PO BID [facility] Last Admin: 01/03/20 10:19 Dose: 1 tab Documented by: Enoxaparin Sodium (Lovenox -) 40 mg SQ DAILY [facility] Last Admin: 01/03/20 10:19 Dose: 40 mg Documented by: Levothyroxine Sodium (Synthroid -) 50 mcg PO DAILY@0700 [facility] Last Admin: 01/03/20 06:02 Dose: 50 mcg Documented by: Metronidazole (Flagyl -) 500 mg PO TID [facility] Last Admin: 01/03/20 06:02 Dose: 500 mg Documented by: Oxybutynin Chloride (Ditropan -) 5 mg PO BID [facility] Last Admin: 01/03/20 10:19 Dose: 5 mg Documented by: Pregabalin (Lyrica -) 100 mg PO BID [facility] Last Admin: 01/03/20 10:18 Dose: 100 mg Documented by: - Objective Vital Signs: Vital Signs Temperature 98.4 F 01/03/20 09:43 Pulse Rate 68 01/03/20 09:43 Respiratory Rate 18 01/03/20 09:43 Blood Pressure 136/56 L 01/03/20 09:43 O2 Sat by Pulse Oximetry (%) 96 01/03/20 09:43 Constitutional: Yes: No Distress, Calm Eyes: Yes: Conjunctiva Clear Cardiovascular: Yes: Regular Rate and Rhythm Respiratory: Yes: CTA Bilaterally Gastrointestinal: Yes: Normal Bowel Sounds, Soft Genitourinary: Yes: Banda Present Musculoskeletal: Yes: Other (paraplegia) Extremities: Yes: WNL Edema: No Integumentary: Yes: WNL Neurological: Yes: Alert, Oriented Psychiatric: Yes: Alert Labs: CBC, BMP 01/03/20 07:35 01/03/20 07:35 INR, PTT INR 1.34 (0.82-1.09) H 12/30/19 18:00 Laboratory Last Values WBC 9.6 K/mm3 (4.0-10.8) 01/03/20 07:35 RBC 3.78 M/mm3 (3.60-5.2) 01/03/20 07:35 Hgb 10.6 GM/dl (10.7-15.3) L 01/03/20 07:35 Hct 33.0 % (32.4-45.2) 01/03/20 07:35 MCV 87.2 fl (80-96) 01/03/20 07:35 MCH 28.1 pg (25.7-33.7) 01/03/20 07:35 MCHC 32.2 g/dl (32.0-36.0) 01/03/20 07:35 RDW 12.2 % (11.6-15.6) 01/03/20 07:35 Plt Count 419 K/MM3 (134-434) 01/03/20 07:35 MPV 8.4 fl (7.5-11.1) 01/03/20 07:35 Absolute Neuts (auto) 8.0 K/mm3 01/02/20 06:52 Neutrophils % 80.5 % (42.8-82.8) 01/02/20 06:52 Lymphocytes % 12.8 % (8-40) 01/02/20 06:52 Monocytes % 5.6 % (3.8-10.2) 01/02/20 06:52 Eosinophils % 0.3 % (0-4.5) 01/02/20 06:52 Basophils % 0.8 % (0-2.0) 01/02/20 06:52 ESR 95 mm/hr (0-30) H 01/02/20 06:52 PT with INR 14.9 SEC (10.2-13.0) H 12/30/19 18:00 INR 1.34 (0.82-1.09) H 12/30/19 18:00 PTT (Actin FS) 24.8 SECONDS (25.2-36.5) L 12/30/19 18:00 Sodium 137 mmol/L (136-145) 01/03/20 07:35 Potassium 3.4 mmol/L (3.5-5.1) L 01/03/20 07:35 Chloride 104 mmol/L (98-107) 01/03/20 07:35 Carbon Dioxide 23 mmol/L (21-32) 01/03/20 07:35 Anion Gap 10 MMOL/L (8-16) 01/03/20 07:35 BUN 10.0 mg/dl (7-18) 01/03/20 07:35 Creatinine 0.6 mg/dl (0.55-1.3) 01/03/20 07:35 Est GFR (CKD-EPI)AfAm 101.18 01/03/20 07:35 Est GFR (CKD-EPI)NonAf 87.30 01/03/20 07:35 Random Glucose 106 mg/dl (74-106) 01/03/20 07:35 Lactic Acid 1.8 mmol/L (0.4-2.0) 12/30/19 22:38 Calcium 8.1 mg/dl (8.5-10) L 01/03/20 07:35 Magnesium 2.2 mg/dL (1.8-2.4) 01/03/20 07:35 Total Bilirubin 0.6 mg/dl (0.2-1) 01/03/20 07:35 AST 24 U/L (15-37) 01/03/20 07:35 ALT 45 U/L (13-61) 01/03/20 07:35 Alkaline Phosphatase 90 U/L (45-117) 01/03/20 07:35 Creatine Kinase 93 U/L (26-192) 12/30/19 18:00 Troponin I < 0.03 ng/ml (0.00-0.05) 12/30/19 18:00 Total Protein 6.0 g/dl (6.4-8.2) L 01/03/20 07:35 Albumin 2.7 g/dl (3.4-5.0) L 01/03/20 07:35 TSH 3.53 uIU/ml (0.358-3.74) 01/02/20 06:52 Free T4 1.38 ng/dl (0.76-1.46) 01/02/20 06:52 Urine Color Yellow 12/30/19 18:00 Urine Appearance Clear 12/30/19 18:00 Urine pH 6.5 (4.5-8) 12/30/19 18:00 Urine Protein Negative (NEGATIVE) 12/30/19 18:00 Urine Glucose (UA) Negative (NEGATIVE) 12/30/19 18:00 Urine Ketones Negative (NEGATIVE) 12/30/19 18:00 Urine Blood Negative (NEGATIVE) 12/30/19 18:00 Urine Nitrite Negative (NEGATIVE) 12/30/19 18:00 Urine Bilirubin Negative (NEGATIVE) 12/30/19 18:00 Urine Urobilinogen 0.2 (0.2-1.0) 12/30/19 18:00 Ur Leukocyte Esterase Negative (NEGATIVE) 12/30/19 18:00 COVID-19 ([facility]) Not detected (Not Detected) 12/30/19 19:32 - ....Imaging Cat Scan: Pending Problem List - Problems (1) Febrile illness Code(s): R50.9 - FEVER, UNSPECIFIED (2) Hypertension Code(s): I10 - ESSENTIAL (PRIMARY) HYPERTENSION (3) Hypothyroidism Code(s): E03.9 - HYPOTHYROIDISM, UNSPECIFIED Qualifiers: Hypothyroidism type: acquired Qualified Code(s): E03.9 - Hypothyroidism, unspecified (4) Paraplegia Code(s): G82.20 - PARAPLEGIA, UNSPECIFIED (5) UTI (urinary tract infection) Code(s): N39.0 - URINARY TRACT INFECTION, SITE NOT SPECIFIED Qualifiers: Urinary tract infection type: acute cystitis Hematuria presence: without hematuria Qualified Code(s): N30.00 - Acute cystitis without hematuria Assessment/Plan Fever HTN Hypothyroidism Paraplegia with hx UTIs (self catheterization) Hx of Spinal abscess - treated 19 yrs ago -- wbc trended down, low grade fever last night, afebrile today and vitals stable -- continue Flagyl for now -- follow up repeat cultures -- follow up CT results -- monitor temp trend
[2020-01-04] MEDS: ACETAMINOPHEN 325 MG TABLET (FP) PO PRN (02:05)
[2020-01-04] MEDS: LEVOTHYROXINE NA 50 MCG TABLET (FP) PO SCH (06:40)
[2020-01-04] MEDS: metroNIDAZOLE 250 MG TABLET PO SCH ×4 (06:40→22:29)
[2020-01-04 08:16] LABS: BASO % 1.6 % (0-2.0); EOS % 0.7 % (0-4.5); HEMOGLOBIN 11.1 GM/dl (10.7-15.3); LYMPH % 19.2 % (8-40); MCH 28.5 pg (25.7-33.7); MCHC 32.7 g/dl (32.0-36.0); MEAN CELL VOLUME 87.3 fl (80-96); MEAN PLT VOLUME 8.7 fl (7.5-11.1); NEUT % 71.5 % (42.8-82.8); PLATELET COUNT 439 K/MM3 (134-434); RBC 3.89 M/mm3 (3.60-5.2); RDW 12.7 % (11.6-15.6); WHITE BLOOD COUNT 9.3 K/mm3 (4.0-10.8)
[2020-01-04 08:42] LABS: ALBUMIN 2.7 g/dl (3.4-5.0); BILIRUBIN,TOTAL 0.4 mg/dl (0.2-1); CALCIUM 8.1 mg/dl (8.5-10); CREATININE 0.6 mg/dl (0.55-1.3); MAGNESIUM 2.1 mg/dL (1.8-2.4); POTASSIUM 3.9 mmol/L (3.5-5.1); TOT PROT 5.9 g/dl (6.4-8.2)
[2020-01-04] MEDS: ASPIRIN 325 MG TABLET PO SCH (09:42)
[2020-01-04] MEDS: PREGABALIN 50 MG CAPSULE PO SCH ×2 (09:43→22:28)
[2020-01-04] MEDS: amLODIPine BESYLATE 2.5 MG TABLET (FP) PO SCH ×2 (09:43→22:29)
[2020-01-04] MEDS: OXYBUTYNIN CHLORIDE 5 MG TABLET PO SCH ×2 (09:43→22:29)
[2020-01-04] MEDS: CALCIUM 500MG/VIT-D 200 UNITS COMBO TABLET (FP) PO SCH ×2 (09:43→22:29)
[2020-01-04] MEDS: ENOXAPARIN NA (PORCINE) 40 MG/0.4 ML DISP.SYRIN SQ SCH (09:43)
--- NOTE | 2020-01-04 10:29 | PN ---
Physical Exam: SUBJECTIVE: Patient seen and examined, pt awake, denies sob, headache, dizziness, no report of diarrhea, pt reports had small BM yesterday pt eager to go home. low grade temp 100.1 blood cx prelim no growth urine cx in process spoke to daughterSabrina and updated on labs, awaiting on ID for clearance for d/c OBJECTIVE: Vital Signs Period Temp Pulse Resp BP Sys/Sterling Pulse Ox Last 24 Hr 98.0 F-100.1 F 69-78 17-18 128-153/49-71 94-96 GENERAL: The patient is awake, alert, and fully oriented, in no acute distress. HEAD: Normal with no signs of trauma. EYES: PERRL, extraocular movements intact, sclera anicteric, conjunctiva clear. No ptosis. ENT: Ears normal, nares patent, oropharynx clear without exudates, moist mucous membranes. NECK: Trachea midline, full range of motion, supple. LUNGS: Breath sounds equal, clear to auscultation bilaterally, no wheezes, no crackles, no accessory muscle use. HEART: Regular rate and rhythm, S1, S2 without murmur, rub or gallop. ABDOMEN: Soft, nontender, nondistended, normoactive bowel sounds, no guarding, no rebound, no hepatosplenomegaly, no masses. EXTREMITIES: 2+ pulses, warm, well-perfused, no edema. NEUROLOGICAL: Cranial nerves II through XII grossly intact. Normal speech, gait not observed. PSYCH: Normal mood, normal affect. SKIN: Warm, dry, normal turgor, no rashes or lesions noted Laboratory Results - last 24 hr 01/04/20 01/04/20 06:00 08:04 WBC 9.3 RBC 3.89 Hgb 11.1 Hct 34.0 MCV 87.3 MCH 28.5 MCHC 32.7 RDW 12.7 Plt Count 439 H MPV 8.7 Absolute Neuts (auto) 6.7 Neutrophils % 71.5 Lymphocytes % 19.2 Monocytes % 7.0 Eosinophils % 0.7 Basophils % 1.6 Sodium 132 L Potassium 3.9 Chloride 100 Carbon Dioxide 22 Anion Gap 10 BUN 10.0 Creatinine 0.6 Est GFR (CKD-EPI)AfAm 101.18 Est GFR (CKD-EPI)NonAf 87.30 Random Glucose 95 Calcium 8.1 L Magnesium 2.1 Total Bilirubin 0.4 AST 21 ALT 39 Alkaline Phosphatase 88 Total Protein 5.9 L Albumin 2.7 L Active Medications Generic Name Dose Route Start Last Admin Trade Name Fly PRN Reason Stop Dose Admin Acetaminophen 650 mg 12/31/19 21:10 01/04/20 02:05 Tylenol - PO 650 mg Q6H PRN Administration FEVER Amlodipine Besylate 2.5 mg 01/02/20 22:00 01/04/20 09:43 Norvasc - PO 2.5 mg BID [facility] Administration Aspirin 325 mg 12/31/19 10:00 01/04/20 09:42 Asa - PO 325 mg DAILY [facility] Administration Calcium Carbonate/Cholecalciferol 1 tab 12/31/19 10:00 01/04/20 09:43 Os-Eric 500+D - PO 1 tab BID [facility] Administration Enoxaparin Sodium 40 mg 12/31/19 10:00 01/04/20 09:43 Lovenox - SQ 40 mg DAILY [facility] Administration Levothyroxine Sodium 50 mcg 12/31/19 07:00 01/04/20 06:40 Synthroid - PO 50 mcg DAILY@0700 [facility] Administration Metronidazole 500 mg 01/02/20 14:00 01/04/20 07:02 Flagyl - PO Not Given TID [facility] Oxybutynin Chloride 5 mg 12/31/19 10:00 01/04/20 09:43 Ditropan - PO 5 mg BID [facility] Administration Pregabalin 100 mg 12/31/19 10:00 01/04/20 09:43 Lyrica - PO 100 mg BID [facility] Administration ASSESSMENT/PLAN: 79 year old female with a significant past medical history of hypertension, hyperlipidemia, paraplegia for 19 years at T3 level secondary to spinal epidural abscess, and frequent UTIs (patient self catheterizes) # UTI (urinary tract infection) Assessment/Plan: Zosyn completed repeat UCX sent on 12/29 negative Code(s): N39.0 - URINARY TRACT INFECTION, SITE NOT SPECIFIED Qualifiers: Urinary tract infection type: acute cystitis Hematuria presence: without hematuria Qualified Code(s): N30.00 - Acute cystitis without hematuria # Febrile illness Assessment/Plan: Oral flagyl started at the recommendation of ID trend WBC and temp curve APAP PRN fever > 101.0 new scruggs inserted 01/01 -CT A/P/C unremarkable Code(s): R50.9 - FEVER, UNSPECIFIED #Hypertension Assessment/Plan: cardiac diet -c/w norvasc 2.5mg BID Code(s): I10 - ESSENTIAL (PRIMARY) HYPERTENSION #Hypothyroidism Assessment/Plan: c/w synthroid 50mcg daily TSH and T4 free wnl Code(s): E03.9 - HYPOTHYROIDISM, UNSPECIFIED Qualifiers: Hypothyroidism type: acquired Qualified Code(s): E03.9 - Hypothyroidism, unspecified #Paraplegia Assessment/Plan: Turn and position q2hrs d/c bowel regimen due to loose stool x 1 overnight Code(s): G82.20 - PARAPLEGIA, UNSPECIFIED Full Code Dispo: requires inpatient care Visit type - Emergency Visit Emergency Visit: Yes ED Registration Date: 12/30/19 Care time: The patient presented to the Emergency Department on the above date and was hospitalized for further evaluation of their emergent condition. - New Patient This patient is new to me today: No - Critical Care Critical Care patient: No - Medication Review Med list reviewed for High Risk Meds patients 65 and older: Yes
--- NOTE | 2020-01-04 13:08 | PN ---
Progress Note, Physician History of Present Illness: Pt states she feels well and has no complaints. 1 BM yesterday, less watery and without any abd pain. States she is back to her baseline state of health. Tmax 100.1, currently afebrile. CT results noted. - Current Medication List Current Medications: Active Medications Acetaminophen (Tylenol -) 650 mg PO Q6H PRN PRN Reason: FEVER Last Admin: 01/04/20 02:05 Dose: 650 mg Documented by: Amlodipine Besylate (Norvasc -) 2.5 mg PO BID [facility] Last Admin: 01/04/20 09:43 Dose: 2.5 mg Documented by: Aspirin (Asa -) 325 mg PO DAILY [facility] Last Admin: 01/04/20 09:42 Dose: 325 mg Documented by: Calcium Carbonate/Cholecalciferol (Os-Eric 500+D -) 1 tab PO BID [facility] Last Admin: 01/04/20 09:43 Dose: 1 tab Documented by: Enoxaparin Sodium (Lovenox -) 40 mg SQ DAILY [facility] Last Admin: 01/04/20 09:43 Dose: 40 mg Documented by: Levothyroxine Sodium (Synthroid -) 50 mcg PO DAILY@0700 [facility] Last Admin: 01/04/20 06:40 Dose: 50 mcg Documented by: Metronidazole (Flagyl -) 500 mg PO TID [facility] Last Admin: 01/04/20 07:02 Dose: Not Given Documented by: Oxybutynin Chloride (Ditropan -) 5 mg PO BID [facility] Last Admin: 01/04/20 09:43 Dose: 5 mg Documented by: Pregabalin (Lyrica -) 100 mg PO BID [facility] Last Admin: 01/04/20 09:43 Dose: 100 mg Documented by: - Objective Vital Signs: Vital Signs Temperature 98.0 F 01/04/20 09:16 Pulse Rate 70 01/04/20 09:16 Respiratory Rate 17 01/04/20 09:16 Blood Pressure 128/54 L 01/04/20 09:16 O2 Sat by Pulse Oximetry (%) 95 01/04/20 09:16 Constitutional: Yes: No Distress, Calm Eyes: Yes: Conjunctiva Clear Neck: Yes: Supple Cardiovascular: Yes: Regular Rate and Rhythm Respiratory: Yes: CTA Bilaterally Gastrointestinal: Yes: Normal Bowel Sounds, Soft Genitourinary: Yes: Banda Present Musculoskeletal: Yes: Other (Paraplegia) Edema: No Integumentary: Yes: WNL Neurological: Yes: Alert, Oriented Psychiatric: Yes: Alert Labs: CBC, BMP 01/04/20 08:04 01/04/20 06:00 INR, PTT INR 1.34 (0.82-1.09) H 12/30/19 18:00 Microbiology 01/03/20 09:45 Blood - Peripheral Venous Blood Culture - Preliminary NO GROWTH OBTAINED AFTER 24 HOURS, INCUBATION TO CONTINUE FOR 4 DAYS. 01/03/20 09:30 Blood - Peripheral Venous Blood Culture - Preliminary NO GROWTH OBTAINED AFTER 24 HOURS, INCUBATION TO CONTINUE FOR 4 DAYS. 12/30/19 18:00 Blood - Peripheral Venous Blood Culture - Preliminary NO GROWTH OBTAINED AFTER 96 HOURS, INCUBATION TO CONTINUE FOR 1 DAYS. 12/30/19 18:17 Blood - Peripheral Venous Blood Culture - Preliminary NO GROWTH OBTAINED AFTER 96 HOURS, INCUBATION TO CONTINUE FOR 1 DAYS. 12/30/19 18:00 Urine - Urine Banda Urine Culture - Final NO GROWTH OBTAINED 01/03/20 Urine Culture - pending - ....Imaging Cat Scan: Report Reviewed Problem List - Problems (1) Febrile illness Code(s): R50.9 - FEVER, UNSPECIFIED (2) Hypertension Code(s): I10 - ESSENTIAL (PRIMARY) HYPERTENSION (3) Hypothyroidism Code(s): E03.9 - HYPOTHYROIDISM, UNSPECIFIED Qualifiers: Hypothyroidism type: acquired Qualified Code(s): E03.9 - Hypothyroidism, unspecified (4) Paraplegia Code(s): G82.20 - PARAPLEGIA, UNSPECIFIED (5) UTI (urinary tract infection) Code(s): N39.0 - URINARY TRACT INFECTION, SITE NOT SPECIFIED Qualifiers: Urinary tract infection type: acute cystitis Hematuria presence: without hematuria Qualified Code(s): N30.00 - Acute cystitis without hematuria Assessment/Plan Fever HTN Hypothyroidism Paraplegia with hx UTIs (self catheterizes) Hx of Spinal abscess - treated 19 yrs ago -- pt feeling better, intermittent low grade fever but vitals stable, wbc norm al, and she is without complaints -- CT chest/Abd/Pelvis without specific findings other than mild colon distension -- No paraspinal/spinal tenderness or induration -- Blood cultures/Urine cultures on admission neg, repeat blood culture neg 24h neg -- s/p Zosyn x 4 days without resolution of low grade fevers and was d/c'd -- continue Flagyl po, diarrhea resolved -- follow up repeat Urine culture -- if Urine culture neg and without higher temps ok with d/c on Flagyl po x 1 more week, outpt follow with PMD -- If d/c, pt instructed to return to ER if persistent or higher temps and not feeling well
[2020-01-05] MEDS: metroNIDAZOLE 250 MG TABLET PO SCH (06:17)
[2020-01-05] MEDS: LEVOTHYROXINE NA 50 MCG TABLET (FP) PO SCH (06:17)
[2020-01-05 08:24] LABS: BASO % 0.6 % (0-2.0); EOS % 0.8 % (0-4.5); HEMATOCRIT 35.4 % (32.4-45.2); HEMOGLOBIN 11.5 GM/dl (10.7-15.3); LYMPH % 15.3 % (8-40); MCH 28.4 pg (25.7-33.7); MCHC 32.5 g/dl (32.0-36.0); MEAN CELL VOLUME 87.3 fl (80-96); MEAN PLT VOLUME 8.3 fl (7.5-11.1); MONO % 7.3 % (3.8-10.2); PLATELET COUNT 480 K/MM3 (134-434); RBC 4.05 M/mm3 (3.60-5.2); RDW 12.7 % (11.6-15.6); WHITE BLOOD COUNT 8.3 K/mm3 (4.0-10.8)
[2020-01-05 08:46] LABS: ALBUMIN 2.8 g/dl (3.4-5.0); BILIRUBIN,TOTAL 0.5 mg/dl (0.2-1); CALCIUM 8.2 mg/dl (8.5-10); CREATININE 0.6 mg/dl (0.55-1.3); MAGNESIUM 2.2 mg/dL (1.8-2.4); POTASSIUM 3.9 mmol/L (3.5-5.1); TOT PROT 6.2 g/dl (6.4-8.2)
[2020-01-05] MEDS: ASPIRIN 325 MG TABLET PO SCH (09:56)
[2020-01-05] MEDS: PREGABALIN 50 MG CAPSULE PO SCH (09:57)
[2020-01-05] MEDS: OXYBUTYNIN CHLORIDE 5 MG TABLET PO SCH (09:57)
[2020-01-05] MEDS: CALCIUM 500MG/VIT-D 200 UNITS COMBO TABLET (FP) PO SCH (09:57)
[2020-01-05] MEDS: ENOXAPARIN NA (PORCINE) 40 MG/0.4 ML DISP.SYRIN SQ SCH (09:58)
[2020-01-05] MEDS: amLODIPine BESYLATE 2.5 MG TABLET (FP) PO SCH (09:58)
[2020-01-05 10:07] VITALS: BP 150/66; PULSE 64; TEMP 98
--- NOTE | 2020-01-05 11:14 | DS ---
Physical Exam: SUBJECTIVE: Patient seen and examined. Feels well. No diarrhea. No fevers/chills. No pain. OBJECTIVE: Repeat urine culture negative. Vital Signs Period Temp Pulse Resp BP Sys/Sterling Pulse Ox Last 24 Hr 98.0 F-99.2 F 60-72 18-18 133-156/56-74 95-96 PHYSICAL EXAM GENERAL: The patient is awake, alert, and fully oriented, in no acute distress. HEAD: Normal with no signs of trauma. EYES: PERRL, extraocular movements intact, sclera anicteric, conjunctiva clear. ENT: Ears normal, nares patent, oropharynx clear without exudates, moist mucous membranes. NECK: Trachea midline, full range of motion, supple. LUNGS: Breath sounds equal, clear to auscultation bilaterally, no wheezes, no crackles, no accessory muscle use. HEART: Regular rate and rhythm, S1, S2 without murmur, rub or gallop. ABDOMEN: Soft, nontender, nondistended, normoactive bowel sounds, no guarding, no rebound, no hepatosplenomegaly, no masses. EXTREMITIES: 2+ pulses, warm, well-perfused, no edema. NEUROLOGICAL: Cranial nerves II through XII grossly intact. Normal speech. Par aplegic. PSYCH: Normal mood, normal affect. SKIN: Warm, dry, normal turgor, no rashes or lesions noted. LABS Laboratory Results - last 24 hr 01/05/20 01/05/20 07:40 07:40 WBC 8.3 RBC 4.05 Hgb 11.5 Hct 35.4 MCV 87.3 MCH 28.4 MCHC 32.5 RDW 12.7 Plt Count 480 H MPV 8.3 Absolute Neuts (auto) 6.3 Neutrophils % 76.0 Lymphocytes % 15.3 Monocytes % 7.3 Eosinophils % 0.8 Basophils % 0.6 Sodium 133 L Potassium 3.9 Chloride 102 Carbon Dioxide 22 Anion Gap 9 BUN 11.0 Creatinine 0.6 Est GFR (CKD-EPI)AfAm 101.18 Est GFR (CKD-EPI)NonAf 87.30 Random Glucose 98 Calcium 8.2 L Magnesium 2.2 Total Bilirubin 0.5 AST 33 ALT 37 Alkaline Phosphatase 89 Total Protein 6.2 L Albumin 2.8 L HOSPITAL COURSE: ASSESSMENT/PLAN: This is a 79-year-old female with hypertension, hyperlipidemia, 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 # UTI (urinary tract infection) Assessment/Plan: Zosyn 4-day course completed, then dc'd by ID blood cultures no growth repeat UCX sent on 12/29 negative # Febrile illness Assessment/Plan: Oral flagyl started at the recommendation of ID in setting of diarrhea, which resolved CTAP neg Fevers resolved #Hypertension Assessment/Plan: At goal, continue Norvasc #Hypothyroidism Assessment/Plan: Continue Synthroid TFTs unremarkable #Paraplegia Assessment/Plan: Turn and position q2hrs All symptoms have resolved. Patient will be dc to care of family and VNS. Will rx Flagyl per ID recommendations. Followup instructions and return precautions reviewed with patient and daughter. Date of Admission:12/30/19 Date of Discharge: 01/05/20 Minutes to complete discharge: 45 Discharge Summary Problems reviewed: Yes Reason For Visit: FEVER,UTI Current Active Problems Febrile illness (Acute) Condition: Good - Instructions Diet, Activity, Other Instructions: Antibiotics for UTI have been completed, and repeat culture was negative Continue Flagyl for 7 days as prescribed Follow up with Dr. Marks next week Return for fever (temperature over 100.4) or any other concerning symptoms Referrals: Avila Marks MD [Primary Care Provider] - 1 Week - Home Medications Comprehensive Discharge Medication List: Ambulatory Orders Pregabalin [Lyrica] 100 mg PO BID 12/13/16 Aspirin [ASA -] 325 mg PO DAILY #60 tablet 12/18/16 Calcium 500Mg/Vit-D 200 Units [Os-Eric 500+D -] 1 tab PO BID tab 12/18/16 Cephalexin Monohydrate [Keflex -] 500 mg PO Q8H #21 capsule 12/28/19 Oxybutynin 5 mg PO BID 12/30/19 This patient is new to me today: No Emergency Visit: Yes ED Registration Date: 12/30/19 Care time: The patient presented to the Emergency Department on the above date and was hospitalized for further evaluation of their emergent condition. Critical Care patient: No - Discharge Referral Referred to [facility] Med P.C.: No
--- NOTE | 2020-01-05 13:57 | PN ---
Progress Note, Physician - Current Medication List Current Medications: Active Medications Acetaminophen (Tylenol -) 650 mg PO Q6H PRN PRN Reason: FEVER Last Admin: 01/04/20 02:05 Dose: 650 mg Documented by: Amlodipine Besylate (Norvasc -) 2.5 mg PO BID [facility] Last Admin: 01/05/20 09:58 Dose: 2.5 mg Documented by: Aspirin (Asa -) 325 mg PO DAILY [facility] Last Admin: 01/05/20 09:56 Dose: 325 mg Documented by: Calcium Carbonate/Cholecalciferol (Os-Eric 500+D -) 1 tab PO BID [facility] Last Admin: 01/05/20 09:57 Dose: 1 tab Documented by: Enoxaparin Sodium (Lovenox -) 40 mg SQ DAILY [facility] Last Admin: 01/05/20 09:58 Dose: 40 mg Documented by: Levothyroxine Sodium (Synthroid -) 50 mcg PO DAILY@0700 [facility] Last Admin: 01/05/20 06:17 Dose: 50 mcg Documented by: Metronidazole (Flagyl -) 500 mg PO TID [facility] Last Admin: 01/05/20 06:17 Dose: 500 mg Documented by: Oxybutynin Chloride (Ditropan -) 5 mg PO BID [facility] Last Admin: 01/05/20 09:57 Dose: 5 mg Documented by: Pregabalin (Lyrica -) 100 mg PO BID [facility] Last Admin: 01/05/20 09:57 Dose: 100 mg Documented by: - Objective Vital Signs: Vital Signs Temperature 98.0 F 01/05/20 10:01 Pulse Rate 64 01/05/20 10:01 Respiratory Rate 18 01/05/20 10:01 Blood Pressure 150/66 01/05/20 10:01 O2 Sat by Pulse Oximetry (%) 96 01/05/20 10:01 Labs: CBC, BMP 01/05/20 07:40 01/05/20 07:40 INR, PTT INR 1.34 (0.82-1.09) H 12/30/19 18:00
== END 2020-01-05 12:30 | disposition home health service (06) | DRG 698 ==
LOC: FER 17:13 → SUPCPDRO 17:13 → FM/S 20:34
PROVIDERS: ADMIT Internal Medicine; ATTEND Registered Nurse Emergency
DX: T83.518A Infection and inflammatory reaction due to other urinary catheter, initial encounter (principal); A41.9 Sepsis, unspecified organism; G82.20 Paraplegia, unspecified; N39.0 Urinary tract infection, site not specified; E87.1 Hypo-osmolality and hyponatremia; Y83.9 Surgical procedure, unspecified as the cause of abnormal reaction of the patient, or of later complication, without mention of misadventure at the time of the procedure; I10 Essential (primary) hypertension; E78.5 Hyperlipidemia, unspecified; E03.9 Hypothyroidism, unspecified; E83.51 Hypocalcemia
CPT/HCPCS: 36415; 71045-TC-FY; 71250-TC; 73630-TC-LT; 74176-TC; 80048; 80053; 81003; 81015; 82550; 83605; 83735; 84439; 84443; 84484; 85025; 85027; 85610; 85651; 85730; 87040; 87086; 87186; 93005; 99285-25; U0003